=== PATIENT | male | born 1980 | race Caucasian/White ===

== ENCOUNTER 2019-04-01 02:47 | Emergency (ER) | payer OTHER ==
[2019-04-01] MEDS ORDERED: Bacitracin Oint 1 GM U/D Packet TOP ONE (02:54)
[2019-04-01] MEDS ORDERED: Ketorolac 60 MG/2 ML SDV IM ONE (02:54)
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
== END 2019-04-01 03:30 | disposition home or self-care (01) ==
LOC: MW.ED 02:47
DX: T24.501A Corrosion of first degree of unspecified site of right lower limb, except ankle and foot, initial encounter (principal); T24.402A Corrosion of unspecified degree of unspecified site of left lower limb, except ankle and foot, initial encounter
CPT/HCPCS: 96372; 99283; J1885

== ENCOUNTER 2020-09-07 10:35 | Emergency (ER) | payer MEDICAID ==
[2020-09-07] MEDS ORDERED: Bacitracin Oint 1 GM U/D Packet TOP ONE (10:40)
--- NOTE | 2020-09-07 11:04 | PCM.SN.2 ---
- Free Text/Narrative Note: September 07, 2020 at 11:03 AM 12 lead EKG interpretation Obtained: September 07, 2020 at 10:54 AM Rhythm: Sinus Rate: 94 [place]: Long QT interval 505 ms Intervals: Left bundle branch block ST/T Segments: No acute ischemic changes Interpretation: Sinus rhythm with left bundle branch block and prolonged QT interval. I discussed this with Ms. Katia NP, who will evaluate for electrolyte abnormalities and other causes of prolonged QT syndrome
--- NOTE | 2020-09-07 11:19 | EDM.PDOC ---
ED HPI GENERAL MEDICAL PROBLEM - General Chief Complaint: Head Injury Stated Complaint: HEAD INJURY Time Seen by Provider: 09/07/20 10:35 Source of Information: Reports: Patient History Limitations: Reports: No Limitations - History of Present Illness INITIAL COMMENTS - FREE TEXT/NARRATIVE: HISTORY AND PHYSICAL: History of present illness: Patient is a 39-year-old male who presents to the emergency room with complaints of headache and visual changes post head injury. [place]6 PM when he felt dizzy, fell forward and hit his head on the machine and "passed out". His reports he had seizure-like activity for 30 to 45 seconds. He states he woke up to EMS assessing him. He denies any alcohol or drug abuse. At that time he declined transport to be evaluated in the emergency room. His boss took him home and since, he has had a headache and states that he feels like he is unable to focus his vision. He does have an abr asion to his mid forehead. Reports "my made me come in". Denies any other extremity involvement. Patient denies any fever, chills, neck pain/stiffness. Denies any chest pain, back pain, shortness of breath or cough. Denies any abdominal pain, nausea, vomiting, diarrhea, constipation or dysuria. Has not noted any blood in urine or stool. Patient has been eating and drinking appropriately. Tdap is up-to-date. Review of systems: As per history of present illness and below otherwise all systems reviewed and negative. Past medical history: As per history of present illness and as reviewed below otherwise noncontributory. Surgical history: As per history of present illness and as reviewed below otherwise noncontributory. Social history: See social history for further information Family history: As per history of present illness and as reviewed below otherwise noncontributory. Physical exam: General: Well developed and well nourished 39 year male. Alert and orientated x 3. Nontoxic in appearance and in no acute distress. Vital signs are stable and have been reviewed by me. Nursing notes were reviewed. HEENT: Abrasion to midforehead and across the bridge of nose, nontender, normocephalic, pupils equal and reactive bilaterally 3mm, negative for conjunctival pallor or scleral icterus, mucous membranes moist, mild redness to base of right TM with good light reflex, left TM normal, throat clear, teeth intact, neck supple, nontender, trachea midline. No drooling or trismus noted. No meningeal signs. No hot potato voice noted. Lungs: Clear to auscultation, breath sounds equal bilaterally, chest nontender. Normal work of breathing, no accessory muscles used. Heart: S1S2, regular rate and rhythm without overt murmur Abdomen: Soft, nondistended, nontender. Negative for masses or hepatosplenomegaly. Negative for costovertebral tenderness. Pelvis: Stable nontender. C-spine/Back: No pinpoint vertebral tenderness upon palpation. No crepitus, step-offs or obvious deformities. Patient is ambulatory into the emergency room without difficulty or deficit. Able to rock back on heels and walk on toes. Denies any urinary or fecal incontinence. Denies any numbness, tingling or saddle paresthesia. No concerns of serious infection, fracture or cord compression, or cauda equina syndrome. Deep tendon reflexes brisk bilaterally. Skin: Abrasion across bridge of nose and midforehead. Otherwise skin is otherwise intact, warm, dry. No lesions or rashes noted. Hematologic: No petechiae or purpra. Mucosa appropriate color and normal nail bed color and refill. Extremities: Moves all extremities per self without difficulty or deficits, negative for cords or calf pain. Neurovascular unremarkable. Neuro: Awake, alert, oriented. Cranial nerves II through XII unremarkable. Cer ebellum unremarkable. Motor and sensory unremarkable throughout. Exam nonfocal. Psychiatric: Mood and affect are appropriate. Normal thought process. Answering questions appropriately. Notes: Last known well time was around 1800 on 09/05/20 (Monday evening). He currently has no physical deficits. He is alert, oriented and speaking appropriately. States he has feel slightly confused, "foggy" - reports he's seemed drowsy. GCS 15, NIH 0. PLEASE NOTE THAT THE REPORTS THIS OCCURRED 09/05/2020, when patient thought this occurred yesterday 09/06/2020 CT of the head shows an abnormal 5 cm region of hypoattenuation involving the right medial occipital lobe and posterior medial right temporal lobe concerning for a subacute right FINISH ROLLS OPERATOR territory infarct. Focal hypoattenuation in the central medulla is also noted, potentially artifact however additional focus of ischemia is not excluded. The radiologist did call and speak with me, recommends an MRI.We are able to get a STAT MRI at this time, patient remains stable at this time. MRI of the brain shows acute infarcts in the right FINISH ROLLS OPERATOR territory involving the right occipital lobe, right posterior medial temporal lobe, right splenium of the corpus callosum and posterior aspect right parahippocampal gyrus. NO intracranial hemorrhage. CT angio head and neck shows an occlusion of the right posterior cerebral artery distal to the P2 segment. Apparent occlusion of the origin and proximal cervical segment of the left vertebral artery with reconstitution in the proximal to mid cervical segment. Normal left FINISH ROLLS OPERATOR, basilar artery and vertebral arteries. Dominant left VA. No significant abnormality on the CTA of the neck Myself and Dr Guzmán have spoken with the patient/caregiver and discussed today's findings, in addition to providing specific details for plan of care. Will arrange for patient to be transferred for neurology. Due to the patient's seizure-like activity I will hang a gram of Keppra. [id number]: [facility] at full capacity, unable to accept this patient 1325: [facility] at full capacity 1330: [facility] at full capacity 1335: On the phone with [facility], checking availability with Neuro. Initially spoke with Dr. Yo, neurologist, about this patient and he believes that they are able to accept. Would like the hospitalist involved in this case. One-call will return phone call when they are able to reach the appropriate provider. 1350: Spoke with Dr Killian, hospitalist at [facility] and she is agreeable to excepting this patient for further care and management. Our flight crew is not available for approximately 2 hours, will have [facility] flight crew come and get this patient for transport. Their transfer time is approximately an hour and 40 minutes. Patient's blood pressure has been continued to be monitored while on the nicardipine drip. No change in patient status. See critical care time/note: Diagnostics: CBC, CMP, Troponin, TSH, Magnesium, EKG, CXR, MRI brain Therapeutics: SL x 2, Nicardipine drip (titrate), Keppra 1 gm Impression: Acute Stroke Cerebral artery occlusion Questionable occlusion of vertebral artery Hypertension Emergency Seizure like activity Plan: Transfer to [facility] Definitive disposition and diagnosis as appropriate pending reevaluation and review of above. Head Pain Score (Numeric/FACES): 4 - Related Data Allergies Allergy/AdvReac Type Severity Reaction Status Date / Time No Known Allergies Allergy Verified 09/07/20 10:44 Home Meds: Home Meds . [No Known Home Meds] 04/01/19 [History] Past Medical History Cardiovascular History: Reports: Hypertension Endocrine/Metabolic History: Reports: Diabetes, Type II, Obesity/BMI 30+ - Infectious Disease History Infectious Disease History: Reports: None - Past Surgical History GI Surgical History: Reports: Bariatric Procedure Social & Family History - Family History Family Medical History: Noncontributory - Tobacco Use Tobacco Use Status *Q: Never Tobacco User - Recreational Drug Use Recreational Drug Use: No ED ROS GENERAL - Review of Systems Review Of Systems: Comprehensive ROS is negative, except as noted in HPI. ED EXAM, HEAD INJURY - Physical Exam Exam: See Below (See dictation) Course - Vital Signs Last Recorded V/S: Last Vital Signs Temp 96.9 F 09/07/20 10:44 Pulse 81 09/07/20 14:47 Resp 18 09/07/20 14:47 BP 161/85 H 09/07/20 14:47 Pulse Ox 94 L 09/07/20 14:47 - Orders/Labs/Meds Orders: Active Orders 24 hr Category Date Time Status Assess Neurological Status [RC] ASDIRECTED Care 09/07/20 11:49 Active Cardiac Monitoring [RC] . DIRECTED Care 09/07/20 11:49 Active EKG Documentation Completion [RC] STAT Care 09/07/20 10:40 Active Initiate Acute Stroke Protocol [RC] STAT Care 09/07/20 11:49 Active NIH Stroke Scale [RC] ASDIRECTED Care 09/07/20 11:48 Active Nursing Bedside Swallow Screen [RC] ASDIRECTED Care 09/07/20 11:49 Active UA RFX JERED AND CULT IF INDIC [URIN] Stat Lab 09/07/20 10:40 Ordered Sodium Chloride 0.9% [Saline Flush] Med 09/07/20 11:48 Active 10 ml FLUSH ASDIRECTED PRN Sodium Chloride 0.9% [Saline Flush] Med 09/07/20 11:48 Active 2.5 ml FLUSH ASDIRECTED PRN niCARdipine/Normal Saline [Cardene 40 MG in NS 200 ML] Med 09/07/20 12:00 Active 40 mg in 200 ml IV TITRATE Saline Lock Insert [OM.PC] Stat Oth 09/07/20 11:48 Ordered Medication Orders Nicardipine HCl (Cardene 40 Mg In Ns 200 Ml) 40 mg in 200 mls @ 25 mls/hr IV TITRATE RUPA; Protocol Last Titration: 09/07/20 14:54 Dose: 0 mg/hr, 0 mls/hr Documented by: Titration: 09/07/20 14:31 Dose: 3 mg/hr, 15 mls/hr Documented by: Admin: 09/07/20 14:02 Dose: 5 mg/hr, 25 mls/hr Documented by: ARMANDO Sodium Chloride (Saline Flush) 10 ml FLUSH ASDIRECTED PRN PRN Reason: Keep Vein Open Sodium Chloride (Saline Flush) 2.5 ml FLUSH ASDIRECTED PRN PRN Reason: Keep Vein Open Labs: Laboratory Tests 09/07/20 09/07/20 09/07/20 Range/Units 10:53 10:53 10:53 WBC 7.72 (4.0-11.0) K/uL RBC 5.05 (4.50-5.90) M/uL Hgb 14.6 (13.0-17.0) g/dL Hct 44.5 (38.0-50.0) % MCV 88.1 (80.0-98.0) fL MCH 28.9 (27.0-32.0) pg MCHC 32.8 (31.0-37.0) g/dL RDW Std Deviation 45.0 (28.0-62.0) fl RDW Coeff of Carroll 14 (11.0-15.0) % Plt Count 226 (150-400) K/uL MPV 11.10 (7.40-12.00) fL Neut % (Auto) 67.0 (48.0-80.0) % Lymph % (Auto) 24.0 (16.0-40.0) % Placer % (Auto) 4.9 (0.0-15.0) % Eos % (Auto) 3.6 (0.0-7.0) % Baso % (Auto) 0.5 (0.0-1.5) % Neut # (Auto) 5.2 (1.4-5.7) K/uL Lymph # (Auto) 1.9 (0.6-2.4) K/uL Placer # (Auto) 0.4 (0.0-0.8) K/uL Eos # (Auto) 0.3 (0.0-0.7) K/uL Baso # (Auto) 0.0 (0.0-0.1) K/uL Nucleated RBC % 0.0 /100WBC Nucleated RBCs # 0 K/uL INR APTT (18.6-31.3) SEC Sodium 138 (136-148) mmol/L Potassium 4.0 (3.5-5.1) mmol/L Chloride 103 (98-107) mmol/L Carbon Dioxide 25.9 (21.0-32.0) mmol/L BUN 20 H (7.0-18.0) mg/dL Creatinine 1.3 (0.8-1.3) mg/dL Est Cr Clr Drug Dosing 79.64 mL/min Estimated GFR (MDRD) > 60.0 ml/min Glucose 217 H (74-106) mg/dL Calcium 9.0 (8.5-10.1) mg/dL Magnesium 2.0 (1.8-2.4) mg/dL Total Bilirubin 1.0 (0.2-1.0) mg/dL AST 20 (15-37) IU/L ALT 28 (14-63) IU/L Alkaline Phosphatase 145 H (46-116) U/L Troponin I < 0.050 (0.000-0.056) ng/mL Total Protein 7.0 (6.4-8.2) g/dL Albumin 3.1 L (3.4-5.0) g/dL Globulin 3.9 (2.6-4.0) g/dL Albumin/Globulin Ratio 0.8 L (0.9-1.6) TSH 3rd Generation 1.78 (0.36-3.74) uIU/mL 09/07/20 Range/Units 10:53 WBC (4.0-11.0) K/uL RBC (4.50-5.90) M/uL Hgb (13.0-17.0) g/dL Hct (38.0-50.0) % MCV (80.0-98.0) fL MCH (27.0-32.0) pg MCHC (31.0-37.0) g/dL RDW Std Deviation (28.0-62.0) fl RDW Coeff of Carroll (11.0-15.0) % Plt Count (150-400) K/uL MPV (7.40-12.00) fL Neut % (Auto) (48.0-80.0) % Lymph % (Auto) (16.0-40.0) % Placer % (Auto) (0.0-15.0) % Eos % (Auto) (0.0-7.0) % Baso % (Auto) (0.0-1.5) % Neut # (Auto) (1.4-5.7) K/uL Lymph # (Auto) (0.6-2.4) K/uL Placer # (Auto) (0.0-0.8) K/uL Eos # (Auto) (0.0-0.7) K/uL Baso # (Auto) (0.0-0.1) K/uL Nucleated RBC % /100WBC Nucleated RBCs # K/uL INR 1.08 APTT 24.5 (18.6-31.3) SEC Sodium (136-148) mmol/L Potassium (3.5-5.1) mmol/L Chloride (98-107) mmol/L Carbon Dioxide (21.0-32.0) mmol/L BUN (7.0-18.0) mg/dL Creatinine (0.8-1.3) mg/dL Est Cr Clr Drug Dosing mL/min Estimated GFR (MDRD) ml/min Glucose (74-106) mg/dL Calcium (8.5-10.1) mg/dL Magnesium (1.8-2.4) mg/dL Total Bilirubin (0.2-1.0) mg/dL AST (15-37) IU/L ALT (14-63) IU/L Alkaline Phosphatase (46-116) U/L Troponin I (0.000-0.056) ng/mL Total Protein (6.4-8.2) g/dL Albumin (3.4-5.0) g/dL Globulin (2.6-4.0) g/dL Albumin/Globulin Ratio (0.9-1.6) TSH 3rd Generation (0.36-3.74) uIU/mL Meds: Medications Generic Name Dose Route Start Last Admin Trade Name Freq PRN Reason Stop Dose Admin Nicardipine HCl 40 mg in 200 mls @ 25 mls/hr 09/07/20 12:00 09/07/20 14:54 Cardene 40 Mg In Ns 200 Ml IV 0 mg/hr TITRATE RUPA 0 mls/hr Titration Protocol 5 MG/HR Sodium Chloride 10 ml 09/07/20 11:48 Saline Flush FLUSH ASDIRECTED PRN Keep Vein Open Sodium Chloride 2.5 ml 09/07/20 11:48 Saline Flush FLUSH ASDIRECTED PRN Keep Vein Open Discontinued Medications Generic Name Dose Route Start Last Admin Trade Name Freq PRN Reason Stop Dose Admin Bacitracin 1 dose 09/07/20 10:40 09/07/20 14:11 Bacitracin Oint 1 Gm TOP 09/07/20 10:41 1 dose ONETIME ONE Administration Bacitracin Confirm 09/07/20 14:09 09/07/20 14:16 Bacitracin Oint 1 Gm Administered 09/07/20 14:10 Not Given Dose 1 dose .ROUTE .STK-MED ONE Gadobenate Dimeglumine 20 ml 09/07/20 11:51 09/07/20 11:54 Multihance IVPUSH 09/07/20 11:52 20 ml ONETIME STA Administration Levetiracetam 1,000 mg/ 110 mls @ 440 mls/hr 09/07/20 14:10 09/07/20 14:51 Dextrose/Water IV 09/07/20 14:24 440 mls/hr NOW STA Administration Lidocaine HCl Confirm 09/07/20 13:28 09/07/20 14:06 Xylocaine-Mpf 1% Administered 09/07/20 13:29 Not Given Dose 10 ml .ROUTE .STK-MED ONE Lidocaine HCl 5 ml 09/07/20 13:48 09/07/20 14:02 Xylocaine-Mpf 1% INJECT 09/07/20 13:49 5 ml ONETIME ONE Administration Departure - Departure Time of Disposition: 15:08 Disposition: DC/Tfer to Acute Hospital 02 Clinical Impression: Acute ischemic stroke, Seizure-like activity, Hypertensive emergency - Discharge Information Referrals: PCP,None [Primary Care Provider] - Forms: ED Department Discharge Critical Care Note - Critical Care Note Comments: Critical care time is exclusive of billable procedures and the time to perform these procedures. Critical care time was used to prevent vital system organ failure and deterioration. Critical care time includes bedside management and high-complexity decision making requiring my highest level of mental preparedness and attention. This includes reviewing the patient's chart and prior medical records, ordering and reviewing interpreting laboratory studies and imaging results, interpretation of vital signs and EKG, pulse oximetry, and discussion with the admitting team along with EMS and nursing staff. Patient required frequent morning of vitals and adjustment of intravenous nicardipine drip and intravenous antiepileptic for 78 minutes. Sepsis Event Note (ED) - Evaluation Sepsis Screening Result: No Definite Risk - Focused Exam Vital Signs: Vital Signs Temp Pulse Resp BP Pulse Ox 09/07/20 14:47 81 18 161/85 H 94 L 09/07/20 14:32 85 18 166/86 H 94 L 09/07/20 14:17 88 183/98 H 93 L 09/07/20 13:02 180/111 H 09/07/20 11:50 216/129 H 09/07/20 11:34 203/129 H 09/07/20 10:44 96.9 F 98 18 210/147 H 98 - My Orders Last 24 Hours: My Active Orders 09/07/20 10:40 EKG Documentation Completion [RC] STAT UA RFX JERED AND CULT IF INDIC [URIN] Stat 09/07/20 11:48 NIH Stroke Scale [RC] ASDIRECTED Sodium Chloride 0.9% [Saline Flush] 10 ml FLUSH ASDIRECTED PRN Sodium Chloride 0.9% [Saline Flush] 2.5 ml FLUSH ASDIRECTED PRN Saline Lock Insert [OM.PC] Stat 09/07/20 11:49 Assess Neurological Status [RC] ASDIRECTED Cardiac Monitoring [RC] . DIRECTED Initiate Acute Stroke Protocol [RC] STAT Nursing Bedside Swallow Screen [RC] ASDIRECTED 09/07/20 12:00 niCARdipine/Normal Saline [Cardene 40 MG in NS 200 ML] 40 mg in 200 ml IV TITRATE - Assessment/Plan Last 24 Hours: My Active Orders 09/07/20 10:40 EKG Documentation Completion [RC] STAT UA RFX JERED AND CULT IF INDIC [URIN] Stat 09/07/20 11:48 NIH Stroke Scale [RC] ASDIRECTED Sodium Chloride 0.9% [Saline Flush] 10 ml FLUSH ASDIRECTED PRN Sodium Chloride 0.9% [Saline Flush] 2.5 ml FLUSH ASDIRECTED PRN Saline Lock Insert [OM.PC] Stat 09/07/20 11:49 Assess Neurological Status [RC] ASDIRECTED Cardiac Monitoring [RC] . DIRECTED Initiate Acute Stroke Protocol [RC] STAT Nursing Bedside Swallow Screen [RC] ASDIRECTED 09/07/20 12:00 niCARdipine/Normal Saline [Cardene 40 MG in NS 200 ML] 40 mg in 200 ml IV TITRATE
[2020-09-07 11:35] LABS: BLOOD UREA NITROGEN,BUN 20 mg/dL (7.0-18.0); CARBON DIOXIDE,CO2 25.9 mmol/L (21.0-32.0); CHLORIDE,CL 103 mmol/L (98-107); GLUCOSE RANDOM 217 mg/dL (74-106); SODIUM,NA 138 mmol/L (136-148)
--- NOTE | 2020-09-07 11:45 | CT ---
Indication: Dizziness. Head trauma. Vision changes. Technique: CT of the head without contrast. Coronal and sagittal reformats. Bone and soft tissue windows. Comparison: No prior studies available for comparison at this institution. Findings: There is a 5 cm AP region of abnormal hypoattenuation in the medial right occipital lobe and posteromedial right temporal lobe concerning for subacute infarct. Focal hypoattenuation in the central medulla is also noted, potentially artifact however additional focus of ischemia is not excluded. Confirmation with MRI is recommended. No evidence of acute intracranial hemorrhage. No midline shift. No hydrocephalus. No suspicious extra-axial collection. Incidental small lipomas along the anterior falx. The calvarium is intact. The mastoid air cells, paranasal sinuses and orbits are unremarkable. Findings discussed with Dr. Montalvo at 11:40 a.m. Impression: 1. Abnormal 5 cm region of hypoattenuation involving the right medial occipital lobe and posteromedial right temporal lobe concerning for subacute right WOOD CALKER territory infarct. 2. Focal hypoattenuation in the central medulla is also noted, potentially artifact however additional focus of ischemia is not excluded. Confirmation with MRI is recommended. Please note that all CT scans at this facility use dose modulation, iterative reconstruction, and/or weight-based dosing when appropriate to reduce radiation dose to as low as reasonably achievable. Dictated by Jack Huizar MD @ Sep 07 2020 11:30AM Signed by Dr. Jack Huizar @ Sep 07 2020 11:43AM
[2020-09-07] MEDS ORDERED: Sodium Chloride 0.9% 2.5 ML Syringe FLUSH PRN (11:48)
[2020-09-07] MEDS ORDERED: Sodium Chloride 0.9% 10 ML Syringe FLUSH PRN (11:48)
--- NOTE | 2020-09-07 11:49 | PCM.SN.2 ---
- Free Text/Narrative Note: September 07, 2020 at 11:48 AM Repeat EKG secondary to wavy baseline and difficulty with interpretation on previous EKG 12 lead EKG interpretation Obtained: EKG #2, September 07, 2020 11:42 AM Rhythm: Sinus Rate: 88 [place]: Normal Intervals: Prolonged QT interval with a QTC of [address]/T Segments: No acute ischemic changes Interpretation: Sinus rhythm with left bundle branch block, prolonged QT interval.
[2020-09-07] MEDS ORDERED: Gadobenate Dimeglumine 529 MG/ML 20 ML SDV IVPUSH STA (11:51)
[2020-09-07] MEDS ORDERED: niCARdipine/Normal Saline 40 MG/200 ML BAG IV SCH (12:00)
--- NOTE | 2020-09-07 12:58 | MR ---
Indication: Headache, dizziness, and vision changes. Abnormal CT head Technique: Noncontrast sagittal and axial T1, axial FLAIR, T2 turbo spine echo, SWI, and diffusion weighted images. Supplemental post contrast T1 weighted axial and coronal sequences are provided after administration of 20 mL gadolinium-based IV contrast. Comparison: CT 09/07/2020 Findings: There is a moderate region of diffusion restriction and T2 prolongation involving the medial right occipital lobe, posterior medial right temporal lobe with smaller foci in the right splenium of the corpus callosum and posterior aspect of the right parahippocampal gyrus consistent with right CERTIFIED FRAUD EXAMINER territory infarcts. No hydrocephalus. No acute intracranial hemorrhage. No suspicious extra-axial collection no abnormal postcontrast enhancement. Expected intracranial vascular flow voids and enhancement are observed. The calvarium is intact. Findings were called to Dr. Montalvo at 12:54 p.m. Impression: 1. Acute infarcts in the right CERTIFIED FRAUD EXAMINER territory involving the right occipital lobe, right posterior medial temporal lobe, right splenium of the corpus callosum and posterior aspect right parahippocampal gyrus. 2. No intracranial hemorrhage. Dictated by Jack Huizar MD @ Sep 07 2020 12:50PM Signed by Dr. Jack Huizar @ Sep 07 2020 12:57PM
--- NOTE | 2020-09-07 13:38 | CT ---
DATE: 09/07/2020. CLINICAL HISTORY: Patient with acute neurological deficit. TECHNIQUE: Standard helical CT image acquisition through the head and neck was performed after intravenous contrast bolus enhancement. Multiplanar reconstructed images were performed and interpreted. COMPARISON: Correlation with head CT and brain MRI dated 09/07/2020. FINDINGS: The origins of the great vessels from the aortic arch are patent. The origin of the right vertebral artery is patent. The origin of the left vertebral artery as well as its V1 and proximal V2 segments are difficult to assess due to patient body habitus and timing of contrast bolus; however, there is asymmetric poor opacification suggestive of occlusion. The more distal V2 segment of the dominant left vertebral artery is opacified. The common carotid arteries are patent. Atherosclerosis of the right greater than left carotid bifurcations extending into the carotid bulbs results in mild luminal stenosis of the proximal right internal carotid artery (less than 50 percent stenosis by NASCET criteria) and no significant luminal stenosis of the proximal left internal carotid artery. The rest of the cervical segments of the internal carotid arteries are patent up to their intracranial segments, noting tortuosity and subpetrosal loops bilaterally. The intracranial segments of the internal carotid arteries are patent. The left vertebral artery is dominant. The mid to distal cervical segments of the vertebral arteries are patent. The intracranial segments of the vertebral arteries are patent, with the hypoplastic right vertebral artery demonstrating a markedly diminutive caliber distal to the origin of PICA. There is complete occlusion of the proximal to mid P2 segment of the right posterior cerebral artery. Evolving infarction is seen in the inferior and medial right temporal lobe as well as the occipital lobe. The basilar trunk as well as the left posterior cerebral artery are widely patent. The middle cerebral arteries are normal without aneurysm or proximal occlusion identified. The anterior cerebral arteries are normal without aneurysm or proximal occlusion identified. Incidental note is made of markedly hypoplastic A1 segment of the right anterior cerebral artery. The anterior communicating artery is well visualized and appears normal. There is normal opacification of major intracranial venous structures. The visualized lung apices are unremarkable The thyroid gland is unremarkable. The soft tissues of the neck are unremarkable. There are degenerative changes in the cervical spine. IMPRESSION: 1. Complete occlusion of the proximal to mid P2 segment of the right posterior cerebral artery with evolving infarction, as detailed above. 2. Apparent occlusion of the origin and proximal cervical segment of the left vertebral artery with reconstitution in the proximal to mid cervical segment. Please note, however, that assessment is significantly degraded secondary to patient body habitus and timing of the contrast bolus. 3. Mild atherosclerotic stenosis (less than 50 percent by NASCET criteria) of the proximal right internal carotid artery. Please note that all CT scans at this facility use dose modulation, iterative reconstruction, and/or weight-based dosing when appropriate to reduce radiation dose to as low as reasonably achievable. Dictated by Evelio Michael MD @ Sep 07 2020 1:41PM Signed by Dr. Evelio Michael @ Sep 07 2020 2:00PM
--- NOTE | 2020-09-07 13:52 | PCM.SN.2 ---
- Free Text/Narrative Note: Attending physician note I have seen and evaluated the patient with the advanced practice provider. Chief Complaint: Syncope with seizure now with confusion and difficulty with vision Brief HPI: 39-year-old male had a sudden onset of syncope followed by seizure and then continued difficulty with cognition, speech, using his left upper extremity, and visual acuity. Reports emergency department for these and had a CT with concerning findings for likely stroke. Patient has an MRI that shows acute stroke and CT angiogram shows occlusion of the right posterior cerebral artery distal to the P2 segment. CTA neck is read as normal. ROS: Reviewed and agree Focused Exam: VITAL SIGNS: Reviewed. GENERAL: conversant, GCS 13, with eye opening to voice and mild confusion HEAD: No visible signs of trauma EYES: Pupils equal, EOM grossly intact EARS: Hearing grossly intact. MOUTH: No visible lesions NECK: Appears supple CHEST: Breathing comfortably, clear lung sounds CARDIAC: Regular rhythm ABDOMEN: Soft, nontender, benign exam NEUROLOGIC EXAM: Eye-opening is to voice, mild confusion, no slurred speech, equal facial symmetry, cranial nerves II through XII are intact. Patient has difficulty with focus of his eyes. Some difficulty using his hands. says speech is slightly different but not slurred. SKIN: No visible rashes EXTREMITIES: No deformities noted VASCULAR: Appears well perfused Please see my previously dictated EKG notes PROCEDURE NOTE: Arterial Line Placement Ultrasound Guided: Yes INDICATION: Arterial blood pressure monitoring for resuscitation TECHNIQUE: Maximum sterile barrier technique. Seldinger technique. LOCATION: Right radial COMPLICATIONS: none ANAESTHESIA: local 1% lidocaine WAVEFORM: excellent, correlates PROCEDURE: Ultrasound guidance of needle placement Indication: Guidance of needle for procedure Performed and interpreted by myself Findings: 1. Targeted structure identified 2. Distance from the skin noted 3. Surrounding vascular and nerve structures noted Interpretation: Ultrasound guidance of needle to increase safety and accuracy of procedure. Signed by Obi Guzmán M.D. Critical Care Note: The patient presented in critical status due to acute stroke with hypertensive emergency requiring intravenous vasoactive medications for control blood pressure The patient required rapid exam, decision making, and frequent re-evaluations during their time in the Emergency Department. Total Critical Care time exclusive of all other billable procedure time provided by myself 107 minutes NIH Stroke Scale/Score (NIHSS) RESULT SUMMARY: 4 points NIH Stroke Scale INPUTS: 1A: Level of consciousness > 1 = Arouses to minor stimulation 1B: Ask month and age > 0 = Both questions right 1C: 'Blink eyes' & 'squeeze hands' > 0 = Performs both tasks 2: Horizontal extraocular movements > 0 = Normal 3: Visual chaudhari > 0 = No visual loss 4: Facial palsy > 0 = Normal symmetry 5A: Left arm motor drift > 1 = Drift, but doesn't hit bed 5B: Right arm motor drift > 0 = No drift for 10 seconds 6A: Left leg motor drift > 0 = No drift for 5 seconds 6B: Right leg motor drift > 0 = No drift for 5 seconds 7: Limb Ataxia > 1 = Ataxia in 1 Limb 8: Sensation > 0 = Normal; no sensory loss 9: Language/aphasia > 1 = Mild-moderate aphasia: some obvious changes, without significant limitation 10: Dysarthria > 0 = Normal 11: Extinction/inattention > 0 = No abnormality The patient has altered mental status and I considered the following entities in the differential diagnosis: hypoglycemia, electrolyte imbalance, head trauma, intracranial bleed or mass, meningitis sepsis, transient ischemic attack or stroke, toxidrome/intoxication/medication effect, seizure or postictal state, hepatic encephalopathy, acid/base disturbance, hypercapnia. No evidence of metabolic abnormality. No hypoglycemia. Electrolytes are normal. No meningitis or sepsis found. No toxidrome. Does not appear to be postictal. Assessment & Plan: 1. Acute stroke (NIH 4) 2. Acute hypertensive emergency 3. Stroke onset with seizures 4. 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 BMI greater than 35 7. History of lung nodules with no follow-up for greater than 5 years 8. Uncontrolled hypertension 9. Tobacco dependence I spoke to the stroke neurologist at [place], Dr. Alford, he recommends blood pressure goal of 180/90. Strongly recommends no hypotension, also recommends giving Keppra to prevent seizures with the 1000 mg now and then followed by 500 mg twice daily. He also recommends transferring the patient to a large vessel occlusion Center in [place] or [place] where the patient, perfusion scan. He feels the patient is at risk for another stroke.
[2020-09-07] MEDS ORDERED: Bacitracin Oint 1 GM U/D Packet ONE (14:09)
[2020-09-07] MEDS ORDERED: Iopamidol 755 MG/ML 500 ML Multipack Bottle IVPUSH STA (16:22)
--- NOTE | 2020-09-07 16:45 | PCM.SN.2 ---
- Free Text/Narrative Note: Justice the transport team arrived the patient needed to urinate and he refused to use the bedside urinal. We tried to facilitate his needs and let him go to the restroom. We assisted him in going to the restroom and he refused to provide a urine sample. He used a tirade of profanity saying he is leaving the hospital. I checked his mental status and he is awake, alert, oriented to person place time and event. He understands his condition and understands that he had a stroke, a seizure, and could have permanent neurologic impairment and other life-threatening type impairment if he leaves the hospital. He is refusing to stay for treatment and has pulled out his IV. He tried to pulled out his arterial line but it is sutured in and he has asked us to remove the suture so he can leave. His family is currently not here because the patient was being transferred and they went home. I will let the family know of his condition. I have asked him to stay multiple times and spent more than 30 minutes at the bedside trying to work through this. My diagnostic impression: 1. Acute stroke syndrome as listed before Leaving AGAINST MEDICAL ADVICE, of sound mind, signed AMA and understands this is releasing the hospital, emergency physician, other providers, nursing staff and all associated care providers of medical liability.
== END 2020-09-07 17:11 | disposition left against medical advice (07) ==
LOC: MW.ED 10:35
DX: I16.1 Hypertensive emergency (principal); I63.9 Cerebral infarction, unspecified; I10 Essential (primary) hypertension; E11.9 Type 2 diabetes mellitus without complications; E66.9 Obesity, unspecified
CPT/HCPCS: 36415; 36600; 70450; 70496; 70498; 70553; 80053; 82803; 83735; 84443; 84484; 85025; 85610; 85730; 93005; 96365; 96366; 96375; 99291; 99292; A9577; J1953; J2001; J7060; Q9967; 93010

== ENCOUNTER 2020-09-09 09:24 | Inpatient (IN) | payer MEDICAID ==
[2020-09-09] MEDS ORDERED: Lactated Ringers 1,000 ML IV ONE (09:38)
[2020-09-09] MEDS ORDERED: Sodium Chloride 0.9% 2.5 ML Syringe FLUSH PRN (09:38)
[2020-09-09] MEDS ORDERED: Sodium Chloride 0.9% 10 ML Syringe FLUSH PRN (09:38)
--- NOTE | 2020-09-09 09:38 | EDM.PDOC ---
ED HPI GENERAL MEDICAL PROBLEM - General Chief Complaint: Headache Stated Complaint: STROKE Time Seen by Provider: 09/09/20 09:34 Source of Information: Reports: Patient, EMS History Limitations: Reports: No Limitations - History of Present Illness INITIAL COMMENTS - FREE TEXT/NARRATIVE: 39-year-old male recently signed out AGAINST MEDICAL ADVICE on 09/07 for hypertensive emergency and ischemic stroke, cerebral artery occlusion, and seizure-like activity returns by EMS for headache and blurry vision. He woke up at 0300 this morning complaining of worsening blurry vision and frontal headache that he had on 09/07, at that time he was getting airlifted to [place] for hypertensive emergency but signed out AGAINST MEDICAL ADVICE because he got scared. He was prescribed Keppra, lisinoprl/HCTZ, and aspirin, but he did not fill the medications. Patient denies fever, chills, headache, chest pain, shortness of breath, abdominal pain, focal numbness or weakness. MS noted blood glucose = 220, blood pressure = 220/120. EMS noted negative FAST. On 09/07 he underwent CTA head/neck, which demonstrated a complete occlusion to the proximal to mid P2 segment of the right posterior cerebral artery with evolving infarction, occlusion at the origin and proximal cervical segment of the left vertebral artery with reconstitution in the proximal to mid cervical segment. MRI brain demonstrated acute infarct in the right [employer] territory involving the right occipital lobe, right posterior medial temporal lobe, right splenium of the corpus callosum and posterior aspect right parahippocampal gyrus. No intracranial hemorrhage. ROS: A 10-point review of systems, other than pertinent positives and negatives as stated per HPI, is otherwise negative Past medical history: No additional pertinent history Past Surgical history: No additional pertinent history Social history: No additional pertinent history Family history: No additional pertinent history PHYSICAL EXAM General: AOx4, GCS = 15, No distress HEENT: dry mucous membrane Neck: supple, no meningismus, no Kernig or Brudzinski Cardiac: S1S2 RRR Respiratory: CTAB, no crackles or rales, no wheezing Abdomen: Soft, nontender, no rebound or guarding, nondistended, no pulsatile mass. Back: nontender Musculoskeletal: NVI distally, no deformity Neuro: No focal deficits, CN 2 - 12 WNL. headache, behind eyes Pain Score (Numeric/FACES): 5 - Related Data Allergies Allergy/AdvReac Type Severity Reaction Status Date / Time No Known Allergies Allergy Verified 09/09/20 09:29 Home Meds: Home Meds Aspirin [Aspirin EC] 325 mg PO QAM #60 tablet. 09/07/20 [Rx] Lisinopril/Hydrochlorothiazide [Lisinopril-Hctz 20-25 mg Tab] 1 each PO DAILY #60 tablet 09/07/20 [Rx] levETIRAcetam [Keppra] 500 mg PO BID #60 tablet 09/07/20 [Rx] Past Medical History Cardiovascular History: Reports: Hypertension Endocrine/Metabolic History: Reports: Diabetes, Type II, Obesity/BMI 30+ - Infectious Disease History Infectious Disease History: Reports: None - Past Surgical History GI Surgical History: Reports: Bariatric Procedure Social & Family History - Family History Family Medical History: Noncontributory ED ROS GENERAL - Review of Systems Review Of Systems: Comprehensive ROS is negative, except as noted in HPI. (see dictation) ED EXAM, GENERAL - Physical Exam Exam: See Below (see dictation) #1 Interpretation EKG Date: 09/09/20 Time: 09:53 Rhythm: NSR QT: Prolonged EKG Interpretation Comments: Heart rate = 92 bpm, normal sinus rhythm, QTC 494ms, normal QRS interval, no STEMI. EKG and rhythm strip interpreted by me at 0953 Course - Vital Signs Last Recorded V/S: Last Vital Signs Temp 96.9 F 09/09/20 09:25 Pulse 90 09/09/20 10:27 Resp 20 09/09/20 10:27 BP 205/138 H 09/09/20 10:27 Pulse Ox 98 09/09/20 10:27 - Orders/Labs/Meds Orders: Active Orders 24 hr Category Date Time Status Cardiac Monitoring [RC] . DIRECTED Care 09/09/20 09:38 Active EKG Documentation Completion [RC] STAT Care 09/09/20 09:38 Active Pulse Oximetry [RC] ASDIRECTED Care 09/09/20 09:38 Active B-TYPE NATRIURETIC PEPTIDE,BNP [CHEM] Stat Lab 09/09/20 09:30 Received CORONAVIRUS COVID-19 PCR PHL Stat Lab 09/09/20 09:38 Ordered DRUG SCREEN, URINE [URCHEM] Stat Lab 09/09/20 09:38 Ordered UA W/MICROSCOPIC [URIN] Stat Lab 09/09/20 09:38 Ordered Sodium Chloride 0.9% [Saline Flush] Med 09/09/20 09:38 Active 10 ml FLUSH ASDIRECTED PRN Sodium Chloride 0.9% [Saline Flush] Med 09/09/20 09:38 Active 2.5 ml FLUSH ASDIRECTED PRN niCARdipine/Normal Saline [Cardene 40 MG in NS 200 ML] Med 09/09/20 10:45 Active 40 mg in 200 ml IV TITRATE Saline Lock Insert [OM.PC] Stat Oth 09/09/20 09:38 Ordered Medication Orders Nicardipine HCl (Cardene 40 Mg In Ns 200 Ml) 40 mg in 200 mls @ 25 mls/hr IV TITRATE RUPA; Protocol Sodium Chloride (Saline Flush) 10 ml FLUSH ASDIRECTED PRN PRN Reason: Keep Vein Open Last Admin: 09/09/20 10:30 Dose: 10 ml Documented by: LEIGH ANN Sodium Chloride (Saline Flush) 2.5 ml FLUSH ASDIRECTED PRN PRN Reason: Keep Vein Open Last Admin: 09/09/20 10:32 Dose: 2.5 ml Documented by: LEIGH ANN Labs: Laboratory Tests 09/09/20 09/09/20 Range/Units 09:30 09:30 WBC 6.58 (4.0-11.0) K/uL RBC 5.31 (4.50-5.90) M/uL Hgb 15.0 (13.0-17.0) g/dL Hct 46.3 (38.0-50.0) % MCV 87.2 (80.0-98.0) fL MCH 28.2 (27.0-32.0) pg MCHC 32.4 (31.0-37.0) g/dL RDW Std Deviation 44.1 (28.0-62.0) fl RDW Coeff of [place] 14 (11.0-15.0) % Plt Count 228 (150-400) K/uL MPV 10.90 (7.40-12.00) fL Neut % (Auto) 58.9 (48.0-80.0) % Lymph % (Auto) 28.3 (16.0-40.0) % [place] % (Auto) 7.0 (0.0-15.0) % Eos % (Auto) 5.2 (0.0-7.0) % Baso % (Auto) 0.6 (0.0-1.5) % Neut # (Auto) 3.9 (1.4-5.7) K/uL Lymph # (Auto) 1.9 (0.6-2.4) K/uL [place] # (Auto) 0.5 (0.0-0.8) K/uL Eos # (Auto) 0.3 (0.0-0.7) K/uL Baso # (Auto) 0.0 (0.0-0.1) K/uL Nucleated RBC % 0.0 /100WBC Nucleated RBCs # 0 K/uL Sodium 137 (136-148) mmol/L Potassium 3.5 (3.5-5.1) mmol/L Chloride 102 (98-107) mmol/L Carbon Dioxide 26.6 (21.0-32.0) mmol/L BUN 14 (7.0-18.0) mg/dL Creatinine 1.3 (0.8-1.3) mg/dL Est Cr Clr Drug Dosing 79.64 mL/min Estimated GFR (MDRD) > 60.0 ml/min Glucose 195 H (74-106) mg/dL Calcium 8.9 (8.5-10.1) mg/dL Phosphorus 3.7 (2.6-4.7) mg/dL Magnesium 1.7 L (1.8-2.4) mg/dL Total Bilirubin 1.0 (0.2-1.0) mg/dL AST 17 (15-37) IU/L ALT 28 (14-63) IU/L Alkaline Phosphatase 153 H (46-116) U/L Creatine Kinase 84 (26-308) U/L Troponin I < 0.050 (0.000-0.056) ng/mL Total Protein 7.5 (6.4-8.2) g/dL Albumin 3.2 L (3.4-5.0) g/dL Globulin 4.3 H (2.6-4.0) g/dL Albumin/Globulin Ratio 0.7 L (0.9-1.6) Ethyl Alcohol < 3.0 mg/dL Meds: Medications Generic Name Dose Route Start Last Admin Trade Name Freq PRN Reason Stop Dose Admin Nicardipine HCl 40 mg in 200 mls @ 25 mls/hr 09/09/20 10:45 Cardene 40 Mg In Ns 200 Ml IV TITRATE RUPA Protocol 5 MG/HR Sodium Chloride 10 ml 09/09/20 09:38 09/09/20 10:30 Saline Flush FLUSH 10 ml ASDIRECTED PRN Administration Keep Vein Open Sodium Chloride 2.5 ml 09/09/20 09:38 09/09/20 10:32 Saline Flush FLUSH 2.5 ml ASDIRECTED PRN Administration Keep Vein Open Discontinued Medications Generic Name Dose Route Start Last Admin Trade Name Freq PRN Reason Stop Dose Admin Lactated Ringer's 1,000 mls @ 999 mls/hr 09/09/20 09:38 09/09/20 10:30 Ringers, Lactated IV 09/09/20 10:38 999 mls/hr .BOLUS ONE Administration Labetalol HCl 20 mg 09/09/20 09:40 09/09/20 10:29 Normodyne IVPUSH 09/09/20 09:41 20 mg ONETIME ONE Administration Protocol - Re-Assessments/Exams Free Text/Narrative Re-Assessment/Exam: 09/09/20 10:34 After 20 mg IV labetalol, blood pressure is still high, will start patient on Cardene drip. Patient will require transfer to outside facility for the need of higher level of care not available at this facility, and the need for funeral pre need consultant services unavailable at this facility. Patient was previously accepted at [facility] 2 days ago, will attempt to call them again. Case was discussed and accepted by Dr. Yo at [facility], given his symptoms have been ongoing for 5 days now, he doesn't recommend transfer at this time, at this time for HCTZ/Chlorthalidone, recommends ECHO, outpatient compliance monitor, statin, aspirin. 09/09/20 10:53 BP = 177/112 now, case discussed with Dr. Caballero, who agrees to admit patient. The hospitalist's documentation supersedes all other documentation on this patient with regard to any conflicts or discrepancies from this point forward. Any emergency conditions have been treated to the ability of the ED prior to admission. Departure - Departure Time of Disposition: 10:36 Disposition: Admitted As Inpatient 64 Condition: Critical Clinical Impression: Hypertensive emergency, Seizure-like activity, Ischemic stroke, Cerebral artery occlusion, Noncompliance with medication regimen - Discharge Information Referrals: PCP,None [Primary Care Provider] - Forms: ED Department Discharge Critical Care Note - Critical Care Note Comments: CRITCAL CARE: The high probability of sudden, clinically significant deterioration in the patient's condition required the highest level of my preparedness to intervene urgently. The services I provided to this patient were to treat and/or prevent clinically significant deterioration. Services included the following: chart data review, reviewing nursing notes and/or old charts, documentation time, funeral pre need consultant collaboration regarding findings and treatment options, medication orders and management, direct patient care, vital sign assessments and ordering, interpreting and reviewing diagnostic studies/lab tests. Aggregate critical care time includes only time during which I was engaged in work directly related to the patient's care, as described above, whether at the bedside or elsewhere in the Emergency Department. It did not include time spent performing other reported procedures or the services of residents, students, nurses or physician assistants. Frequent interventions and/or frequent repeat evaluations were required as well as counseling and coordination of care regarding prognosis, treatments, and discussions with patient, staff and consultants. Critical Care (excluding other procedures): 126 minutes Sepsis Event Note (ED) - Evaluation Sepsis Screening Result: No Definite Risk - Focused Exam Vital Signs: Vital Signs Temp Pulse Resp BP Pulse Ox 09/09/20 10:27 90 20 205/138 H 98 09/09/20 09:25 96.9 F 96 18 229/132 H 97 - My Orders Last 24 Hours: My Active Orders 09/09/20 09:30 B-TYPE NATRIURETIC PEPTIDE,BNP [CHEM] Stat 09/09/20 09:38 Cardiac Monitoring [RC] . DIRECTED EKG Documentation Completion [RC] STAT Pulse Oximetry [RC] ASDIRECTED CORONAVIRUS COVID-19 PCR PHL Stat DRUG SCREEN, URINE [URCHEM] Stat UA W/MICROSCOPIC [URIN] Stat Sodium Chloride 0.9% [Saline Flush] 10 ml FLUSH ASDIRECTED PRN Sodium Chloride 0.9% [Saline Flush] 2.5 ml FLUSH ASDIRECTED PRN Saline Lock Insert [OM.PC] Stat 09/09/20 10:45 niCARdipine/Normal Saline [Cardene 40 MG in NS 200 ML] 40 mg in 200 ml IV TITRATE - Assessment/Plan Last 24 Hours: My Active Orders 09/09/20 09:30 B-TYPE NATRIURETIC PEPTIDE,BNP [CHEM] Stat 09/09/20 09:38 Cardiac Monitoring [RC] . DIRECTED EKG Documentation Completion [RC] STAT Pulse Oximetry [RC] ASDIRECTED CORONAVIRUS COVID-19 PCR PHL Stat DRUG SCREEN, URINE [URCHEM] Stat UA W/MICROSCOPIC [URIN] Stat Sodium Chloride 0.9% [Saline Flush] 10 ml FLUSH ASDIRECTED PRN Sodium Chloride 0.9% [Saline Flush] 2.5 ml FLUSH ASDIRECTED PRN Saline Lock Insert [OM.PC] Stat 09/09/20 10:45 niCARdipine/Normal Saline [Cardene 40 MG in NS 200 ML] 40 mg in 200 ml IV TITRATE
[2020-09-09] MEDS ORDERED: Labetalol 100 MG/20 ML MDV IVPUSH ONE (09:40)
[2020-09-09 10:14] LABS: BLOOD UREA NITROGEN,BUN 14 mg/dL (7.0-18.0); CARBON DIOXIDE,CO2 26.6 mmol/L (21.0-32.0); CHLORIDE,CL 102 mmol/L (98-107); GLUCOSE RANDOM 195 mg/dL (74-106); POTASSIUM,K 3.5 mmol/L (3.5-5.1); SODIUM,NA 137 mmol/L (136-148)
--- NOTE | 2020-09-09 10:32 | CT ---
INDICATION: Blurred vision. Hypertension. History of stroke. TECHNIQUE: CT head without contrast. COMPARISON: September 07, 2020. FINDINGS: CSF spaces: Within normal limits for age. Brain parenchyma and extra-axial spaces: The mason-white differentiation is normal. Encephalomalacia from an old infarct present in the right posterior cerebral artery distribution. No sign of mass, hemorrhage, or midline shift. No extra-axial fluid collection. Skull base and calvarium: The visualized paranasal sinuses and mastoid air cells demonstrate no acute or significant findings. The visualized orbits are grossly unremarkable. No skull fractures. IMPRESSION: No acute findings. No sign of acute CVA or hemorrhage. 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 Please note that all CT scans at this facility use dose modulation, iterative reconstruction, and/or weight-based dosing when appropriate to reduce radiation dose to as low as reasonably achievable. Dictated by Keyur De Paz MD @ Sep 09 2020 10:24AM Signed by Dr. Keyur De Paz @ Sep 09 2020 10:31AM
--- NOTE | 2020-09-09 10:37 | CR ---
INDICATION: Blurred vision. Hypertensive emergency. TECHNIQUE: Chest 1 view COMPARISON: None FINDINGS: Cardiovascular and mediastinum: Heart size and vasculature are normal in caliber and appearance. Lungs and pleural spaces: A 2 cm faint nodular opacity is in the mid left lung field. Remainder of the lungs and pleural spaces are clear. Bones and soft tissues: No significant findings. IMPRESSION: Indeterminate 2 cm faint nodular opacity in the mid left lung. This should be further evaluated with follow-up chest x-ray or CT evaluation. Remainder of the chest is unremarkable. Dictated by Keyur De Paz MD @ Sep 09 2020 10:33AM Signed by Dr. Keyur De Paz @ Sep 09 2020 10:36AM
[2020-09-09] MEDS ORDERED: niCARdipine/Normal Saline 40 MG/200 ML BAG IV SCH (10:45)
[2020-09-09] MEDS ORDERED: Lisinopril 10 MG Tab PO SCH (11:30)
[2020-09-09] MEDS ORDERED: Acetaminophen 325 MG Tab PO PRN (12:55)
[2020-09-09] MEDS ORDERED: Ondansetron 4 MG/2 ML SDV IVPUSH PRN (12:55)
[2020-09-09] MEDS ORDERED: Aspirin 325 MG Tab PO ONE (12:59)
[2020-09-09] MEDS ORDERED: Enoxaparin 40 MG/0.4 ML Syringe SUBCUT SCH (13:00)
--- NOTE | 2020-09-09 13:39 | PCM.HP.2 ---
H&P History of Present Illness - General Date of Service: 09/09/20 Admit Problem/Dx: Admission Diagnosis/Problem Admission Diagnosis/Problem Ischemic stroke Source of Information: Patient History Limitations: Reports: No Limitations - History of Present Illness Initial Comments - Free Text/Narative: This 39-year-old male with P MH of obesity gastric band surgery and tobacco use presented to the ER with continued blurred vision and headache. He was seen and evaluated on 09/07 for symptoms of dizziness, seizure like activity which started on 09/05. 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 He left AMA and returns today. He reports blurred vision has gotten worse and headache comes and goes but is also worse. He denies following up with any other provider and DID NOT take Lisinopril/HCTZ or Keppra at home that was provided when leaving AMA. He denies chest pain or SOB. No abdominal pain, no neck pain and no concerns with GI/ systems. Denies seizure like activity since leaving. He denies alcohol use or recreational drug use. He repots chewing tobacco use, 1-1 1/2 tins every other day. Denies known family history of clotting disorders, no personal history of clots. He reports he had a stress test years ago, which was negative. Have gastric banding surgery 2 years ago and has last nearly 200 lbs, did weight 580 lbs at time of surgery. In the ED labwork WNL, glucose mildly elevated. EKG SR. Head CT shows old R infarct with encephalomalacia noted. CXR negative. He was noted to have HTN urgency, BP 220/110s, he was given labetalol IV which improved BP. Neurology consulted in [place], they recommended further stroke evaluation, but no interventions available 5 days post CVA. He will be admitted inpatient with HTN urgency, recent ischemic stroke. headache, behind eyes Pain Score (Numeric/FACES): 5 - Related Data Allergies/Adverse Reactions: Allergies Allergy/AdvReac Type Severity Reaction Status Date / Time bee venom protein (honey bee) Allergy Airway Verified 09/09/20 13:45 Tightness Home Medications: Home Meds . [No Known Home Meds] 09/09/20 [History] Past Medical History Cardiovascular History: Reports: Hypertension Endocrine/Metabolic History: Reports: Diabetes, Type II, Obesity/BMI 30+ - Infectious Disease History Infectious Disease History: Reports: Chicken Pox - Past Surgical History GI Surgical History: Reports: Bariatric Procedure Social & Family History - Family History Family Medical History: Noncontributory - Tobacco Use Tobacco Use Status *Q: Current Every Day Tobacco User Tobacco Use Within Last Twelve Months: Smokeless Tobacco Years of Tobacco use: 16 Packs/Tins Daily: 1 Tobacco Use Comment: patient gave me tobacco tin to throw away with NADINE Rivera in the room Smoking Cessation Information Provided To Patient: Yes - Alcohol Use Alcohol Use History: No - Recreational Drug Use Recreational Drug Use: No - Living Situation & Occupation Living situation: Reports: with Significant Other Occupation: Employed H&P Review of Systems - Review of Systems: Review Of Systems: See Below General: Denies: Fever, Chills, Malaise, Weakness HEENT: Reports: Headaches (frontal), Visual Changes Pulmonary: Denies: Shortness of Breath Cardiovascular: Reports: No Symptoms. Denies: Chest Pain Gastrointestinal: Reports: No Symptoms. Denies: Abdominal Pain, Anorexia, Black Stool, Bloody Stool, Nausea, Vomiting Genitourinary: Reports: No Symptoms. Denies: Dysuria, Frequency Musculoskeletal: Reports: No Symptoms Skin: Reports: No Symptoms Psychiatric: Reports: No Symptoms Neurological: Reports: No Symptoms Hematologic/Lymphatic: Reports: No Symptoms Immunologic: Reports: No Symptoms Exam - Exam Exam: See Below - Vital Signs Vital Signs: Last Vital Signs Temp 96.9 F 09/09/20 09:25 Pulse 80 09/09/20 12:24 Resp 18 09/09/20 11:59 BP 185/133 H 09/09/20 12:24 Pulse Ox 97 09/09/20 11:59 Weight: 120.202 kg - Exam General: Alert, Oriented, Cooperative HEENT: Conjunctiva Clear, Mucosa Moist & [place], Posterior Pharynx Clear Lungs: Clear to Auscultation, Normal Respiratory Effort Cardiovascular: Regular Rate, Regular Rhythm GI/Abdominal Exam: Normal Bowel Sounds, Soft, Non-Tender Extremities: Normal Inspection, Normal Range of Motion, Non-Tender, No Pedal Edema Skin: Warm, Dry, Wound (forehead and bridge of nose, old healing abrasions) Neurological: Reflexes Equal Bilateral, Strength Equal Bilateral, Normal Gait, Normal Speech, Other (blurrred vision and impaired peripheral vision L >R. "hard to focus") Neuro Extensive - Mental Status: Alert, Oriented x3, Normal Mood/Affect. No: Memory Intact (Memory is not clear when events happened the last few days.) Psychiatric: Alert, Normal Affect, Normal Mood - Patient Data Lab Results Last 24 hrs: Laboratory Results - last 24 hr 09/09/20 09/09/20 09/09/20 Range/Units 09:30 09:30 09:30 WBC 6.58 (4.0-11.0) K/uL RBC 5.31 (4.50-5.90) M/uL Hgb 15.0 (13.0-17.0) g/dL Hct 46.3 (38.0-50.0) % MCV 87.2 (80.0-98.0) fL MCH 28.2 (27.0-32.0) pg MCHC 32.4 (31.0-37.0) g/dL RDW Std Deviation 44.1 (28.0-62.0) fl RDW Coeff of [place] 14 (11.0-15.0) % Plt Count 228 (150-400) K/uL MPV 10.90 (7.40-12.00) fL Neut % (Auto) 58.9 (48.0-80.0) % Lymph % (Auto) 28.3 (16.0-40.0) % [place] % (Auto) 7.0 (0.0-15.0) % Eos % (Auto) 5.2 (0.0-7.0) % Baso % (Auto) 0.6 (0.0-1.5) % Neut # (Auto) 3.9 (1.4-5.7) K/uL Lymph # (Auto) 1.9 (0.6-2.4) K/uL [place] # (Auto) 0.5 (0.0-0.8) K/uL Eos # (Auto) 0.3 (0.0-0.7) K/uL Baso # (Auto) 0.0 (0.0-0.1) K/uL Nucleated RBC % 0.0 /100WBC Nucleated RBCs # 0 K/uL Sodium 137 (136-148) mmol/L Potassium 3.5 (3.5-5.1) mmol/L Chloride 102 (98-107) mmol/L Carbon Dioxide 26.6 (21.0-32.0) mmol/L BUN 14 (7.0-18.0) mg/dL Creatinine 1.3 (0.8-1.3) mg/dL Est Cr Clr Drug Dosing 79.64 mL/min Estimated GFR (MDRD) > 60.0 ml/min Glucose 195 H (74-106) mg/dL Calcium 8.9 (8.5-10.1) mg/dL Phosphorus 3.7 (2.6-4.7) mg/dL Magnesium 1.7 L (1.8-2.4) mg/dL Total Bilirubin 1.0 (0.2-1.0) mg/dL AST 17 (15-37) IU/L ALT 28 (14-63) IU/L Alkaline Phosphatase 153 H (46-116) U/L Creatine Kinase 84 (26-308) U/L Troponin I < 0.050 (0.000-0.056) ng/mL B-Natriuretic Peptide 136 H (<100) PG/ML Total Protein 7.5 (6.4-8.2) g/dL Albumin 3.2 L (3.4-5.0) g/dL Globulin 4.3 H (2.6-4.0) g/dL Albumin/Globulin Ratio 0.7 L (0.9-1.6) Ethyl Alcohol < 3.0 mg/dL SARS-CoV-2 RNA (ADAL) (NEGATIVE) SARS CoV-2 RNA Rapid ADAL (NEGATIVE) 09/09/20 09/09/20 Range/Units 10:34 10:34 WBC (4.0-11.0) K/uL RBC (4.50-5.90) M/uL Hgb (13.0-17.0) g/dL Hct (38.0-50.0) % MCV (80.0-98.0) fL MCH (27.0-32.0) pg MCHC (31.0-37.0) g/dL RDW Std Deviation (28.0-62.0) fl RDW Coeff of [place] (11.0-15.0) % Plt Count (150-400) K/uL MPV (7.40-12.00) fL Neut % (Auto) (48.0-80.0) % Lymph % (Auto) (16.0-40.0) % [place] % (Auto) (0.0-15.0) % Eos % (Auto) (0.0-7.0) % Baso % (Auto) (0.0-1.5) % Neut # (Auto) (1.4-5.7) K/uL Lymph # (Auto) (0.6-2.4) K/uL [place] # (Auto) (0.0-0.8) K/uL Eos # (Auto) (0.0-0.7) K/uL Baso # (Auto) (0.0-0.1) K/uL Nucleated RBC % /100WBC Nucleated RBCs # K/uL Sodium (136-148) mmol/L Potassium (3.5-5.1) mmol/L Chloride (98-107) mmol/L Carbon Dioxide (21.0-32.0) mmol/L BUN (7.0-18.0) mg/dL Creatinine (0.8-1.3) mg/dL Est Cr Clr Drug Dosing mL/min Estimated GFR (MDRD) ml/min Glucose (74-106) mg/dL Calcium (8.5-10.1) mg/dL Phosphorus (2.6-4.7) mg/dL Magnesium (1.8-2.4) mg/dL Total Bilirubin (0.2-1.0) mg/dL AST (15-37) IU/L ALT (14-63) IU/L Alkaline Phosphatase (46-116) U/L Creatine Kinase (26-308) U/L Troponin I (0.000-0.056) ng/mL B-Natriuretic Peptide (<100) PG/ML Total Protein (6.4-8.2) g/dL Albumin (3.4-5.0) g/dL Globulin (2.6-4.0) g/dL Albumin/Globulin Ratio (0.9-1.6) Ethyl Alcohol mg/dL SARS-CoV-2 RNA (ADAL) NEGATIVE (NEGATIVE) SARS CoV-2 RNA Rapid ADAL NEGATIVE (NEGATIVE) Result Diagrams: 09/09/20 09:30 09/09/20 09:30 Sepsis Event Note - Evaluation Sepsis Screening Result: No Definite Risk - Focused Exam Vital Signs: Vital Signs Temp Pulse Resp BP BP Pulse Ox 09/09/20 12:24 80 185/133 H 09/09/20 12:14 77 196/132 H 09/09/20 11:59 75 18 181/122 H 97 09/09/20 11:36 193/133 H 09/09/20 11:13 77 181/132 H 09/09/20 10:59 74 17 177/122 H 95 09/09/20 10:44 72 17 186/115 H 93 L 09/09/20 10:27 90 20 205/138 H 98 09/09/20 09:25 96.9 F 96 18 229/132 H 97 - Problem List (1) Hypertensive emergency SNOMED Code(s): 283830985202442 ICD Code: I16.1 - HYPERTENSIVE EMERGENCY Status: Acute Current Visit: Yes (2) Obesity SNOMED Code(s): 934764144, 912620585 ICD Code: E66.9 - OBESITY, UNSPECIFIED Status: Chronic Current Visit: Yes (3) Hx of laparoscopic gastric banding SNOMED Code(s): 609285406 ICD Code: Z98.84 - BARIATRIC SURGERY STATUS Status: Chronic Current Visit: Yes (4) Tobacco abuse counseling SNOMED Code(s): 286263527, 707028145, 286969883 ICD Code: Z71.6 - TOBACCO ABUSE COUNSELING Status: Acute Current Visit: Yes (5) Tobacco abuse SNOMED Code(s): 185221637 ICD Code: Z72.0 - TOBACCO USE Status: Chronic Current Visit: Yes (6) Cerebral artery occlusion SNOMED Code(s): 01735946 ICD Code: I66.9 - OCCLUSION AND STENOSIS OF UNSPECIFIED CEREBRAL ARTERY Status: Chronic Current Visit: Yes (7) Ischemic stroke SNOMED Code(s): 343475543 ICD Code: I63.9 - CEREBRAL INFARCTION, UNSPECIFIED Status: Chronic Current Visit: Yes (8) Noncompliance with medication regimen SNOMED Code(s): 696010716 ICD Code: Z91.14 - PATIENT'S OTHER NONCOMPLIANCE WITH MEDICATION REGIMEN Status: Chronic Current Visit: Yes (9) Seizure-like activity SNOMED Code(s): 069475548 ICD Code: R56.9 - UNSPECIFIED CONVULSIONS Status: Chronic Current Visit: Yes (10) DM type 2 (diabetes mellitus, type 2) SNOMED Code(s): 64407535 ICD Code: E11.9 - TYPE 2 DIABETES MELLITUS WITHOUT COMPLICATIONS Status: Acute Current Visit: Yes Qualifiers: 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 DIRECTED Care 09/09/20 09:38 Active Intake and Output [RC] QSHIFT Care 09/09/20 12:56 Active Oxygen Therapy [RC] PRN Care 09/09/20 12:55 Active Telemetry Monitoring [Cardiac Monitoring] [RC] . Care 09/09/20 12:59 Active DIRECTED Up With Assistance [RC] ASDIRECTED Care 09/09/20 12:55 Active VTE/DVT Education [RC] PER UNIT ROUTINE Care 09/09/20 12:55 Active Vital Signs [RC] Q4H Care 09/09/20 12:55 Active Heart Healthy Diet [DIET] Diet 09/09/20 Lunch Active Echo Comp wo Cont [US] Urgent Exams 09/09/20 13:00 Ordered BASIC METABOLIC PANEL,BMP [CHEM] AM Lab 09/10/20 05:11 Ordered CBC WITH AUTO DIFF [HEME] AM Lab 09/10/20 05:11 Ordered DRUG SCREEN, URINE [URCHEM] Stat Lab 09/09/20 09:38 Ordered GLYCOSYLATED HEMOGLOBIN,HGBA1C [CHEM] Routine Lab 09/09/20 12:55 Ordered LIPID PANEL [CHEM] AM Lab 09/10/20 05:11 Ordered MAGNESIUM [CHEM] AM Lab 09/10/20 05:11 Ordered TSH [CHEM] Routine Lab 09/09/20 12:55 Ordered UA W/MICROSCOPIC [URIN] Stat Lab 09/09/20 09:38 Ordered Acetaminophen [TylenoL] Med 09/09/20 12:55 Active 650 mg PO Q4H PRN Aspirin Med 09/10/20 09:00 Active 81 mg PO DAILY Ondansetron [Zofran] Med 09/09/20 12:55 Active 4 mg IVPUSH Q4H PRN Sodium Chloride 0.9% [Saline Flush] Med 09/09/20 09:38 Active 10 ml FLUSH ASDIRECTED PRN Sodium Chloride 0.9% [Saline Flush] Med 09/09/20 09:38 Active 2.5 ml FLUSH ASDIRECTED PRN atorvaSTATin [Lipitor] Med 09/09/20 21:00 Active 80 mg PO BEDTIME lisinopriL [Prinivil] Med 09/09/20 11:30 Active 20 mg PO DAILY Saline Lock Insert [OM.PC] Stat Oth 09/09/20 09:38 Ordered Resuscitation Status Routine Resus Stat 09/09/20 12:55 Ordered Medication Orders Acetaminophen (Tylenol) 650 mg PO Q4H PRN PRN Reason: Pain (Mild 1-3)/fever Aspirin (Aspirin) 81 mg PO DAILY RUPA Atorvastatin Calcium (Lipitor) 80 mg PO BEDTIME RUPA Lisinopril (Prinivil) 20 mg PO DAILY RUPA Last Admin: 09/09/20 11:36 Dose: 20 mg Documented by: MURDNIC Ondansetron HCl (Zofran) 4 mg IVPUSH Q4H PRN PRN Reason: Nausea Sodium Chloride (Saline Flush) 10 ml FLUSH ASDIRECTED PRN PRN Reason: Keep Vein Open Last Admin: 09/09/20 10:30 Dose: 10 ml Documented by: MURDNIC Sodium Chloride (Saline Flush) 2.5 ml FLUSH ASDIRECTED PRN PRN Reason: Keep Vein Open Last Admin: 09/09/20 10:32 Dose: 2.5 ml Documented by: MURDNIC Assessment/Plan Comment:: This 39 year old male admitted with hypertensive urgency, recent ischemic CVA with R posterior cerebral artery occlusion 1. Hypertensive Urgency - Start Lisinopril 40 mg, given 20 in the ED, continues to have elevated BP, give another 20 now - Labetolol PRN elevated BPs - headache has improved, blurred vision the same 2. Recent ischemic CVA: - Counseled heavily on tobacco cessation greater than 10 minutes - Will obtain TTE, A1c, Lipid panel and TSH - Consulted Dr Sylvester, needs further work including KEE. She will see patient and coordinate further work up - Add hypercoag studies, ordered and are send out labs - ASA daily - Atorvastatin 80 mg daily - Does not need PT/ST/OT at this time - Zio patch as outpatient. - Discussed current care with sister who is a nurse. She denies any family history of any coagulopathies. She does report that there mother suddenly at the age of 46 autopsy showed cardiomyopathy as the cause of . Their father at the age of 60 due to a neuroendocrine carcinoma. A grandfather had a meningioma and of a PE after a surgical procedure. 3. 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
[2020-09-09] MEDS ORDERED: Lisinopril 10 MG Tab PO ONE (13:42)
[2020-09-09] MEDS ORDERED: Labetalol 100 MG/20 ML MDV IVPUSH PRN (13:58)
[2020-09-09 14:52] LABS: HEMOGLOBIN A1C 8.1 % (4.5-6.2)
[2020-09-09] MEDS ORDERED: Glucagon,Human Recombinant 1 MG Vial IM PRN (15:05)
[2020-09-09] MEDS ORDERED: 50% Dextrose in Water 50 ML Syringe IV PRN (15:05)
[2020-09-09] MEDS ORDERED: Insulin Aspart 100 Units/ML 3 ML Pen SUBCUT SCH (17:00)
[2020-09-09] MEDS ORDERED: atorvaSTATin 40 MG Tab PO SCH (21:00)
[2020-09-09] MEDS ORDERED: Acetaminophen/HYDROcodone 325-5 MG Tab PO PRN (21:03)
--- NOTE | 2020-09-10 08:03 | PCM.DCSUM1 ---
Discharge Summary - Hospital Course Brief History: This 39-year-old male with P MH of obesity gastric band surgery and tobacco use presented to the ER with continued blurred vision and headache. He was seen and evaluated on 09/07 for symptoms of dizziness, seizure like activity which started on 09/05. 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 He left A and returns today. He reports blurred vision has gotten worse and headache comes and goes but is also worse. He denies following up with any other provider and DID NOT take Lisinopril/HCTZ or Keppra at home that was provided when leaving AMA. He denies chest pain or SOB. No abdominal pain, no neck pain and no concerns with GI/ systems. Denies seizure like activity since leaving. He denies alcohol use or recreational drug use. He repots chewing tobacco use, 1-1 1/2 tins every other day. Denies known family history of clotting disorders, no personal history of clots. He reports he had a stress test years ago, which was negative. Have gastric banding surgery 2 years ago and has last nearly 200 lbs, did weight 580 lbs at time of surgery. In the ED labwork WNL, glucose mildly elevated. EKG SR. Head CT shows old R infarct with encephalomalacia noted. CXR negative. He was noted to have HTN urgency, BP 220/110s, he was given labetalol IV which improved BP. Neurology consulted in [place], they recommended further stroke evaluation, but no interventions available 5 days post CVA. He will be admitted inpatient with HTN urgency, recent ischemic stroke. - Discharge Data Discharge Date: 09/09/20 Discharge Disposition: Against Medical Advice 07 Condition: Stable - Referral to Home Health Primary Care Physician: PCP None - Discharge Diagnosis/Problem(s) (1) Hypertensive emergency SNOMED Code(s): 925937366148107 ICD Code: I16.1 - HYPERTENSIVE EMERGENCY Status: Acute (2) Obesity SNOMED Code(s): 040672177, 687834494 ICD Code: E66.9 - OBESITY, UNSPECIFIED Status: Chronic (3) Hx of laparoscopic gastric banding SNOMED Code(s): 304743409 ICD Code: Z98.84 - BARIATRIC SURGERY STATUS Status: Chronic (4) Tobacco abuse counseling SNOMED Code(s): 851247375, 723464770, 418176235 ICD Code: Z71.6 - TOBACCO ABUSE COUNSELING Status: Acute (5) Tobacco abuse SNOMED Code(s): 320146015 ICD Code: Z72.0 - TOBACCO USE Status: Chronic (6) Cerebral artery occlusion SNOMED Code(s): 09238110 ICD Code: I66.9 - OCCLUSION AND STENOSIS OF UNSPECIFIED CEREBRAL ARTERY Status: Chronic (7) Ischemic stroke SNOMED Code(s): 646339227 ICD Code: I63.9 - CEREBRAL INFARCTION, UNSPECIFIED Status: Chronic (8) Noncompliance with medication regimen SNOMED Code(s): 502102062 ICD Code: Z91.14 - PATIENT'S OTHER NONCOMPLIANCE WITH MEDICATION REGIMEN Status: Chronic (9) Seizure-like activity SNOMED Code(s): 629838680 ICD Code: R56.9 - UNSPECIFIED CONVULSIONS Status: Chronic (10) DM type 2 (diabetes mellitus, type 2) SNOMED Code(s): 70403139 ICD Code: E11.9 - TYPE 2 DIABETES MELLITUS WITHOUT COMPLICATIONS Status: Acute Qualifiers: Diabetes mellitus jail insulin use: without jail use Diabetes mellitus complication status: with hyperglycemia Qualified Code(s): E11.65 - Type 2 diabetes mellitus with hyperglycemia - Patient Summary/Data Consults: Consultations 09/09/20 13:49 Consult to Physician [CONS] Routine 09/09/20 15:06 Consult to DM [Consult to Diabetic Nurse Specialist] [CONS] Routine Hospital Course: Admitting Diagnoses: Hypertensive urgency Blurred vision headache recent Ischemic CVA Occluded posterior R cerebral artery Dilip was admitted secondary to hypertensive urgency, treated with labetolol and Lisinopril. BP improved. Dr Sylvester consulted and was going to see patient today. ECHO was obtained. Patient suddenly decided to leave AMA before being seen by a provider in the evening. Hypercoag workup was not obtained. - Discharge Plan *PRESCRIPTION DRUG MONITORING PROGRAM REVIEWED*: Not Applicable *COPY OF PRESCRIPTION DRUG MONITORING REPORT IN PATIENT [place]: Not Applicable Home Medications: Home Meds . [No Known Home Meds] 09/09/20 [History] Oxygen Therapy Mode: Room Air Referrals: PCP,None [Primary Care Provider] - - Discharge Summary/Plan Comment DC Time >30 min.: No - Patient Data Vitals - Most Recent: Last Vital Signs Temp 98.2 F 09/09/20 20:00 Pulse 82 09/09/20 20:00 Resp 18 09/09/20 20:00 BP 165/82 H 09/09/20 20:00 Pulse Ox 98 09/09/20 20:00 Weight - Most Recent: 120.202 kg I&O - Last 24 hours: Intake & Output 09/09/20 09/10/20 09/10/20 22:59 06:59 14:59 Intake Total 800 Balance 800 Lab Results - Last 24 hrs: Laboratory Results - last 24 hr 09/09/20 09/09/20 09/09/20 Range/Units 09:30 09:30 09:30 WBC 6.58 (4.0-11.0) K/uL RBC 5.31 (4.50-5.90) M/uL Hgb 15.0 (13.0-17.0) g/dL Hct 46.3 (38.0-50.0) % MCV 87.2 (80.0-98.0) fL MCH 28.2 (27.0-32.0) pg MCHC 32.4 (31.0-37.0) g/dL RDW Std Deviation 44.1 (28.0-62.0) fl RDW Coeff of [place] 14 (11.0-15.0) % Plt Count 228 (150-400) K/uL MPV 10.90 (7.40-12.00) fL Neut % (Auto) 58.9 (48.0-80.0) % Lymph % (Auto) 28.3 (16.0-40.0) % [place] % (Auto) 7.0 (0.0-15.0) % Eos % (Auto) 5.2 (0.0-7.0) % Baso % (Auto) 0.6 (0.0-1.5) % Neut # (Auto) 3.9 (1.4-5.7) K/uL Lymph # (Auto) 1.9 (0.6-2.4) K/uL [place] # (Auto) 0.5 (0.0-0.8) K/uL Eos # (Auto) 0.3 (0.0-0.7) K/uL Baso # (Auto) 0.0 (0.0-0.1) K/uL Nucleated RBC % 0.0 /100WBC Nucleated RBCs # 0 K/uL Sodium 137 (136-148) mmol/L Potassium 3.5 (3.5-5.1) mmol/L Chloride 102 (98-107) mmol/L Carbon Dioxide 26.6 (21.0-32.0) mmol/L BUN 14 (7.0-18.0) mg/dL Creatinine 1.3 (0.8-1.3) mg/dL Est Cr Clr Drug Dosing 79.64 mL/min Estimated GFR (MDRD) > 60.0 ml/min Glucose 195 H (74-106) mg/dL POC Glucose (60-110) mg/dL Hemoglobin A1c (4.5-6.2) % Calcium 8.9 (8.5-10.1) mg/dL Phosphorus 3.7 (2.6-4.7) mg/dL Magnesium 1.7 L (1.8-2.4) mg/dL Total Bilirubin 1.0 (0.2-1.0) mg/dL AST 17 (15-37) IU/L ALT 28 (14-63) IU/L Alkaline Phosphatase 153 H (46-116) U/L Creatine Kinase 84 (26-308) U/L Troponin I < 0.050 (0.000-0.056) ng/mL B-Natriuretic Peptide 136 H (<100) PG/ML Total Protein 7.5 (6.4-8.2) g/dL Albumin 3.2 L (3.4-5.0) g/dL Globulin 4.3 H (2.6-4.0) g/dL Albumin/Globulin Ratio 0.7 L (0.9-1.6) TSH 3rd Generation (0.36-3.74) uIU/mL Ethyl Alcohol < 3.0 mg/dL SARS-CoV-2 RNA (ADAL) (NEGATIVE) SARS CoV-2 RNA Rapid ADAL (NEGATIVE) 09/09/20 09/09/20 09/09/20 Range/Units 09:30 10:34 10:34 WBC (4.0-11.0) K/uL RBC (4.50-5.90) M/uL Hgb (13.0-17.0) g/dL Hct (38.0-50.0) % MCV (80.0-98.0) fL MCH (27.0-32.0) pg MCHC (31.0-37.0) g/dL RDW Std Deviation (28.0-62.0) fl RDW Coeff of [place] (11.0-15.0) % Plt Count (150-400) K/uL MPV (7.40-12.00) fL Neut % (Auto) (48.0-80.0) % Lymph % (Auto) (16.0-40.0) % [place] % (Auto) (0.0-15.0) % Eos % (Auto) (0.0-7.0) % Baso % (Auto) (0.0-1.5) % Neut # (Auto) (1.4-5.7) K/uL Lymph # (Auto) (0.6-2.4) K/uL [place] # (Auto) (0.0-0.8) K/uL Eos # (Auto) (0.0-0.7) K/uL Baso # (Auto) (0.0-0.1) K/uL Nucleated RBC % /100WBC Nucleated RBCs # K/uL Sodium (136-148) mmol/L Potassium (3.5-5.1) mmol/L Chloride (98-107) mmol/L Carbon Dioxide (21.0-32.0) mmol/L BUN (7.0-18.0) mg/dL Creatinine (0.8-1.3) mg/dL Est Cr Clr Drug Dosing mL/min Estimated GFR (MDRD) ml/min Glucose (74-106) mg/dL POC Glucose (60-110) mg/dL Hemoglobin A1c (4.5-6.2) % Calcium (8.5-10.1) mg/dL Phosphorus (2.6-4.7) mg/dL Magnesium (1.8-2.4) mg/dL Total Bilirubin (0.2-1.0) mg/dL AST (15-37) IU/L ALT (14-63) IU/L Alkaline Phosphatase (46-116) U/L Creatine Kinase (26-308) U/L Troponin I (0.000-0.056) ng/mL B-Natriuretic Peptide (<100) PG/ML Total Protein (6.4-8.2) g/dL Albumin (3.4-5.0) g/dL Globulin (2.6-4.0) g/dL Albumin/Globulin Ratio (0.9-1.6) TSH 3rd Generation 4.36 H (0.36-3.74) uIU/mL Ethyl Alcohol mg/dL SARS-CoV-2 RNA (ADAL) NEGATIVE (NEGATIVE) SARS CoV-2 RNA Rapid ADAL NEGATIVE (NEGATIVE) 09/09/20 09/09/20 09/09/20 Range/Units 14:31 15:53 17:56 WBC (4.0-11.0) K/uL RBC (4.50-5.90) M/uL Hgb (13.0-17.0) g/dL Hct (38.0-50.0) % MCV (80.0-98.0) fL MCH (27.0-32.0) pg MCHC (31.0-37.0) g/dL RDW Std Deviation (28.0-62.0) fl RDW Coeff of [place] (11.0-15.0) % Plt Count (150-400) K/uL MPV (7.40-12.00) fL Neut % (Auto) (48.0-80.0) % Lymph % (Auto) (16.0-40.0) % [place] % (Auto) (0.0-15.0) % Eos % (Auto) (0.0-7.0) % Baso % (Auto) (0.0-1.5) % Neut # (Auto) (1.4-5.7) K/uL Lymph # (Auto) (0.6-2.4) K/uL [place] # (Auto) (0.0-0.8) K/uL Eos # (Auto) (0.0-0.7) K/uL Baso # (Auto) (0.0-0.1) K/uL Nucleated RBC % /100WBC Nucleated RBCs # K/uL Sodium (136-148) mmol/L Potassium (3.5-5.1) mmol/L Chloride (98-107) mmol/L Carbon Dioxide (21.0-32.0) mmol/L BUN (7.0-18.0) mg/dL Creatinine (0.8-1.3) mg/dL Est Cr Clr Drug Dosing mL/min Estimated GFR (MDRD) ml/min Glucose (74-106) mg/dL POC Glucose 129 H 205 H (60-110) mg/dL Hemoglobin A1c 8.1 H (4.5-6.2) % Calcium (8.5-10.1) mg/dL Phosphorus (2.6-4.7) mg/dL Magnesium (1.8-2.4) mg/dL Total Bilirubin (0.2-1.0) mg/dL AST (15-37) IU/L ALT (14-63) IU/L Alkaline Phosphatase (46-116) U/L Creatine Kinase (26-308) U/L Troponin I (0.000-0.056) ng/mL B-Natriuretic Peptide (<100) PG/ML Total Protein (6.4-8.2) g/dL Albumin (3.4-5.0) g/dL Globulin (2.6-4.0) g/dL Albumin/Globulin Ratio (0.9-1.6) TSH 3rd Generation (0.36-3.74) uIU/mL Ethyl Alcohol mg/dL SARS-CoV-2 RNA (ADAL) (NEGATIVE) SARS CoV-2 RNA Rapid ADAL (NEGATIVE) Med Orders - Current: Current Medications Discontinued Medications Acetaminophen (Tylenol) 650 mg PO Q4H PRN PRN Reason: Pain (Mild 1-3)/fever Aspirin (Aspirin) 81 mg PO DAILY RUPA Aspirin (Aspirin) 325 mg PO ONETIME ONE Stop: 09/09/20 13:00 Last Admin: 09/09/20 13:28 Dose: 325 mg Documented by: Atorvastatin Calcium (Lipitor) 80 mg PO BEDTIME [facility] Dextrose/Water (Dextrose 50% In Water) 50 ml IV ASDIRECTED PRN PRN Reason: Hypoglycemia Enoxaparin Sodium (Lovenox) 40 mg SUBCUT Q24H RUPA Glucagon (Glucagen) 1 mg IM ASDIRECTED PRN PRN Reason: Hypoglycemia Hydrochlorothiazide (Hydrochlorothiazide) 25 mg PO DAILY [facility] Lactated Ringer's (Ringers, Lactated) 1,000 mls @ 999 mls/hr IV .BOLUS ONE Stop: 09/09/20 10:38 Last Admin: 09/09/20 10:30 Dose: 999 mls/hr Documented by: Nicardipine HCl (Cardene 40 Mg In Ns 200 Ml) 40 mg in 200 mls @ 25 mls/hr IV TITRATE [facility]; Protocol Insulin Aspart (Novolog) 0 unit SUBCUT TIDAC [facility]; Protocol Last Admin: 09/09/20 18:29 Dose: 2 unit Documented by: Labetalol HCl (Normodyne) 20 mg IVPUSH ONETIME ONE; Protocol Stop: 09/09/20 09:41 Last Admin: 09/09/20 10:29 Dose: 20 mg Documented by: Labetalol HCl (Normodyne) 10 mg IVPUSH Q4H PRN PRN Reason: SBP>180/DBP>110 Last Admin: 09/09/20 14:29 Dose: 10 mg Documented by: Lisinopril (Prinivil) 20 mg PO DAILY [facility] Last Admin: 09/09/20 11:36 Dose: 20 mg Documented by: Lisinopril (Prinivil) 20 mg PO ONETIME ONE Stop: 09/09/20 13:43 Last Admin: 09/09/20 14:27 Dose: 20 mg Documented by: Lisinopril (Prinivil) 40 mg PO DAILY [facility] Ondansetron HCl (Zofran) 4 mg IVPUSH Q4H PRN PRN Reason: Nausea Sodium Chloride (Saline Flush) 10 ml FLUSH ASDIRECTED PRN PRN Reason: Keep Vein Open Last Admin: 09/09/20 10:30 Dose: 10 ml Documented by: Sodium Chloride (Saline Flush) 2.5 ml FLUSH ASDIRECTED PRN PRN Reason: Keep Vein Open Last Admin: 09/09/20 10:32 Dose: 2.5 ml Documented by:
[2020-09-10] MEDS ORDERED: Hydrochlorothiazide 25 MG Tab PO SCH (09:00)
[2020-09-10] MEDS ORDERED: Aspirin 81 MG Tab.Chew PO SCH (09:00)
[2020-09-10] MEDS ORDERED: Lisinopril 10 MG Tab PO SCH (09:00)
== END 2020-09-09 20:55 | disposition left against medical advice (07) | DRG 305 ==
LOC: MW.ED 09:24 → MW.MS 10:59
PROVIDERS: ADMIT Internal Medicine; ATTEND Internal Medicine
DX: I16.1 Hypertensive emergency (principal); E66.9 Obesity, unspecified; R56.9 Unspecified convulsions; E11.65 Type 2 diabetes mellitus with hyperglycemia; I10 Essential (primary) hypertension; F17.220 Nicotine dependence, chewing tobacco, uncomplicated; Z20.828 Contact with and (suspected) exposure to other viral communicable diseases; H53.8 Other visual disturbances; G93.89 Other specified disorders of brain; Z98.84 Bariatric surgery status; Z71.6 Tobacco abuse counseling; Z91.14 Patient's other noncompliance with medication regimen; Z91.030 Bee allergy status; I69.398 Other sequelae of cerebral infarction; Z68.37 Body mass index [BMI] 37.0-37.9, adult
CPT/HCPCS: 36415; 70450; 70450-26; 71045; 71045-26; 80053; 80307; 82550; 82962; 83036; 83735; 83880; 84100; 84443; 84484; 85025; 93005; 93306; 96374; 99291; 99292; A9270-GY; J1815-GY; J3490; J7120; U0002

== ENCOUNTER 2020-09-26 16:16 | Emergency (ER) | payer MEDICAID ==
[2020-09-26] MEDS ORDERED: Ondansetron 4 MG/2 ML SDV IVPUSH ONE (16:25)
[2020-09-26] MEDS ORDERED: Sodium Chloride 0.9% 10 ML Syringe FLUSH PRN (16:25)
[2020-09-26] MEDS ORDERED: Sodium Chloride 0.9% 2.5 ML Syringe FLUSH PRN (16:25)
--- NOTE | 2020-09-26 16:35 | EDM.PDOC ---
ED HPI GENERAL MEDICAL PROBLEM - General Chief Complaint: Neurological Problem Stated Complaint: EMS ARRIVAL Time Seen by Provider: 09/26/20 16:25 Source of Information: Reports: Patient, EMS History Limitations: Reports: No Limitations - History of Present Illness INITIAL COMMENTS - FREE TEXT/NARRATIVE: History of present illness: [Patient is 39-year-old male who presents by EMS for chief complaint of near syncope and lightheadedness and hypertension. He was seen here back in August, he had a syncopal event at that time and hit his head, imaging revealed evidence of a blockage in his cerebral vasculature and the plan was for him to be transferred to [place] for stroke. Patient eventually decided to leave AGAINST MEDICAL ADVICE. He is poorly compliant with his medications at home which include aspirin, lisinopril, and one other when he cannot recall. He states that earlier today he felt lightheaded and almost passed out but was able to sit down and rest before it happened. Has not taken his lisinopril today. Denies chest pain, shortness of breath, fever, chills, blurry vision, headache, or any other focal neurological deficit. There was question as to whether patient had some symptoms related to his speech when EMS first arrived, but patient denies any problems with his speech then or now.] Review of systems: As per history of present illness and below otherwise all systems reviewed and negative. Past medical history: As per history of present illness and as reviewed below otherwise noncontributory. Surgical history: As per history of present illness and as reviewed below otherwise noncontributory. Social history: No reported history of drug or alcohol abuse. Family history: As per history of present illness and as reviewed below otherwise noncontributory. Physical exam: General: Awake, alert, no acute distress, A&O X3. HEENT: Atraumatic, normocephalic, pupils reactive, negative for conjunctival pallor or scleral icterus, mucous membranes moist, throat clear, neck supple, nontender, trachea midline. Lungs: Clear to auscultation, breath sounds equal bilaterally, chest nontender. Heart: RRR, normal S1S2, no JVD. Abdomen: Soft, nondistended, nontender. Negative for masses or hepatosplenomegaly.obese. Pelvis: Stable nontender. Genitourinary: Deferred. Rectal: Deferred. Extremities: Atraumatic, no edema, Neurovascular unremarkable. Neuro: Motor and sensory grossly intact throughout. Exam nonfocal. Diagnostics: [] Therapeutics: [] Impression: [] Plan: [] Definitive disposition and diagnosis as appropriate pending reevaluation and review of above. - Related Data Allergies Allergy/AdvReac Type Severity Reaction Status Date / Time bee venom protein (honey bee) Allergy Airway Verified 09/26/20 16:21 Tightness Home Meds: Home Meds Aspirin [Yudelka Chewable Aspirin] 1 dose PO DAILY 09/26/20 [History] Lisinopril/Hydrochlorothiazide [Lisinopril-Hctz 20-25 mg Tab] 1 each PO DAILY #30 tablet 09/26/20 [Rx] lisinopriL [Lisinopril] 1 dose PO DAILY 09/26/20 [History] Past Medical History Cardiovascular History: Reports: Hypertension Neurological History: Reports: CVA Other Neuro History: Stroke 09/07/20 Endocrine/Metabolic History: Reports: Diabetes, Type II, Obesity/BMI 30+ - Infectious Disease History Infectious Disease History: Reports: Chicken Pox, Measles, Mumps - Past Surgical History GI Surgical History: Reports: Bariatric Procedure Social & Family History - Family History Family Medical History: Noncontributory - Tobacco Use Tobacco Use Status *Q: Never Tobacco User - Caffeine Use Caffeine Use: Reports: Energy Drinks, Soda - Recreational Drug Use Recreational Drug Use: No - Living Situation & Occupation Living situation: Reports: with Significant Other Occupation: Employed ED ROS GENERAL - Review of Systems Review Of Systems: Comprehensive ROS is negative, except as noted in HPI. ED EXAM, NEURO - Physical Exam Exam: See Below (see h and p) #1 Interpretation EKG Date: 09/26/20 Time: 16:24 Rhythm: NSR Rate (Beats/Min): 92 [place]: Normal P-Wave: Present QRS: Normal ST-T: Normal QT: Prolonged (qtc 516) Comparison: No Change (compared to 09-09-20) Course - Vital Signs Last Recorded V/S: Last Vital Signs Temp 35.6 C L 09/26/20 16:18 Pulse 90 09/26/20 18:05 Resp 19 09/26/20 18:05 BP 155/96 H 09/26/20 18:24 Pulse Ox 95 09/26/20 18:05 - Orders/Labs/Meds Orders: Active Orders 24 hr Category Date Time Status EKG Documentation Completion [RC] STAT Care 09/26/20 16:26 Active Sodium Chloride 0.9% [Saline Flush] Med 09/26/20 16:25 Active 10 ml FLUSH ASDIRECTED PRN Sodium Chloride 0.9% [Saline Flush] Med 09/26/20 16:25 Active 2.5 ml FLUSH ASDIRECTED PRN Saline Lock Insert [OM.PC] Stat Oth 09/26/20 16:26 Ordered Medication Orders Sodium Chloride (Saline Flush) 10 ml FLUSH ASDIRECTED PRN PRN Reason: Keep Vein Open Last Admin: 09/26/20 16:49 Dose: 10 ml Documented by: KORY Sodium Chloride (Saline Flush) 2.5 ml FLUSH ASDIRECTED PRN PRN Reason: Keep Vein Open Last Admin: 09/26/20 16:50 Dose: 2.5 ml Documented by: KORY Labs: Laboratory Tests 09/26/20 09/26/20 09/26/20 Range/Units 16:20 16:20 16:20 WBC 7.69 (4.0-11.0) K/uL RBC 5.38 (4.50-5.90) M/uL Hgb 15.4 (13.0-17.0) g/dL Hct 46.0 (38.0-50.0) % MCV 85.5 (80.0-98.0) fL MCH 28.6 (27.0-32.0) pg MCHC 33.5 (31.0-37.0) g/dL RDW Std Deviation 42.8 (28.0-62.0) fl RDW Coeff of [place] 14 (11.0-15.0) % Plt Count 170 (150-400) K/uL MPV 11.30 (7.40-12.00) fL Neut % (Auto) 59.1 (48.0-80.0) % Lymph % (Auto) 29.4 (16.0-40.0) % [place] % (Auto) 6.8 (0.0-15.0) % Eos % (Auto) 4.3 (0.0-7.0) % Baso % (Auto) 0.4 (0.0-1.5) % Neut # (Auto) 4.6 (1.4-5.7) K/uL Lymph # (Auto) 2.3 (0.6-2.4) K/uL [place] # (Auto) 0.5 (0.0-0.8) K/uL Eos # (Auto) 0.3 (0.0-0.7) K/uL Baso # (Auto) 0.0 (0.0-0.1) K/uL Nucleated RBC % 0.0 /100WBC Nucleated RBCs # 0 K/uL INR 1.06 APTT 28.0 (18.6-31.3) SEC Sodium 139 (136-148) mmol/L Potassium 3.7 (3.5-5.1) mmol/L Chloride 104 (98-107) mmol/L Carbon Dioxide 26.9 (21.0-32.0) mmol/L BUN 18 (7.0-18.0) mg/dL Creatinine 1.4 H (0.8-1.3) mg/dL Est Cr Clr Drug Dosing 73.96 mL/min Estimated GFR (MDRD) 55.8 ml/min Glucose 180 H (74-106) mg/dL Calcium 8.9 (8.5-10.1) mg/dL Total Bilirubin 1.4 H (0.2-1.0) mg/dL AST 21 (15-37) IU/L ALT 30 (14-63) IU/L Alkaline Phosphatase 128 H (46-116) U/L Troponin I 0.054 (0.000-0.056) ng/mL Total Protein 7.3 (6.4-8.2) g/dL Albumin 3.3 L (3.4-5.0) g/dL Globulin 4.0 (2.6-4.0) g/dL Albumin/Globulin Ratio 0.8 L (0.9-1.6) Meds: Medications Generic Name Dose Route Start Last Admin Trade Name Freq PRN Reason Stop Dose Admin Sodium Chloride 10 ml 09/26/20 16:25 09/26/20 16:49 Saline Flush FLUSH 10 ml ASDIRECTED PRN Administration Keep Vein Open Sodium Chloride 2.5 ml 09/26/20 16:25 09/26/20 16:50 Saline Flush FLUSH 2.5 ml ASDIRECTED PRN Administration Keep Vein Open Discontinued Medications Generic Name Dose Route Start Last Admin Trade Name Freq PRN Reason Stop Dose Admin Lisinopril/HCTZ 1 tab 09/26/20 18:18 Lisinopril-Hctz 10-12.5 Mg PO 09/26/20 18:19 ONETIME ONE Iopamidol 100 ml 09/26/20 17:48 09/26/20 17:49 Isovue-370 (76%) IVPUSH 09/26/20 17:49 100 ml ONETIME ONE Administration Labetalol HCl 20 mg 09/26/20 18:18 Normodyne IVPUSH 09/26/20 18:19 ONETIME ONE Protocol Lisinopril 10 mg 09/26/20 18:23 09/26/20 18:24 Prinivil PO 09/26/20 18:24 10 mg ONETIME ONE Administration Lisinopril Confirm 09/26/20 18:21 Prinivil Administered 09/26/20 18:22 Dose 10 mg .ROUTE .STK-MED ONE Ondansetron HCl 4 mg 09/26/20 16:25 09/26/20 16:49 Zofran IVPUSH 09/26/20 16:26 4 mg ONETIME ONE Administration Departure - Departure Time of Disposition: 18:47 Disposition: Home, Self-Care 01 Condition: Good Clinical Impression: Hypertensive urgency, Dizziness, History of stroke - Discharge Information Prescriptions: Lisinopril/Hydrochlorothiazide [Lisinopril-Hctz 20-25 mg Tab] 1 each PO DAILY #30 tablet Instructions: Managing Your Hypertension Referrals: PCP,None [Primary Care Provider] - Forms: ED Department Discharge Additional Instructions: [facility] - Neurology Professional Building [address] [place] [address], [address] [place] [address] [facility] - Internal Medicine [address] [place] [id number] Follow-up with primary care doctor and neurologist by establishing appointments with those listed above. Take all medications as prescribed. Return to the ER with any new or worsening symptoms. The following information is given to patients seen in the emergency department who are being discharged to home. This information is to outline your options for follow-up care. We provide all patients seen in our emergency department with a follow-up referral. The need for follow-up, as well as the timing and circumstances, are variable depending upon the specifics of your emergency department visit. If you don't have a primary care physician on staff, we will provide you with a referral. We always advise you to contact your personal physician following an emergency department visit to inform them of the circumstance of the visit and for follow-up with them and/or the need for any referrals to a consulting specialist. The emergency department will also refer you to a specialist when appropriate. This referral assures that you have the opportunity for follow-up care with a specialist. All of these measure are taken in an effort to provide you with optimal care, which includes your follow-up. Under all circumstances we always encourage you to contact your private physician who remains a resource for coordinating your care. When calling for follow-up care, please make the office aware that this follow-up is from your recent emergency room visit. If for any reason you are refused follow-up, please contact the [facility] Emergency Department at and asked to speak to the emergency department charge nurse. Sepsis Event Note (ED) - Evaluation Sepsis Screening Result: No Definite Risk - Focused Exam Vital Signs: Vital Signs Temp Pulse Resp BP BP Pulse Ox 09/26/20 18:24 155/96 H 09/26/20 18:05 90 19 163/96 H 95 09/26/20 17:46 89 18 158/88 H 96 09/26/20 17:18 90 182/107 H 87 L 09/26/20 17:12 92 186/118 H 86 L 09/26/20 16:45 90 18 185/112 H 96 09/26/20 16:18 35.6 C L 98 20 206/128 H 95 - My Orders Last 24 Hours: My Active Orders 09/26/20 16:25 Sodium Chloride 0.9% [Saline Flush] 10 ml FLUSH ASDIRECTED PRN Sodium Chloride 0.9% [Saline Flush] 2.5 ml FLUSH ASDIRECTED PRN 09/26/20 16:26 EKG Documentation Completion [RC] STAT Saline Lock Insert [OM.PC] Stat - Assessment/Plan Last 24 Hours: My Active Orders 09/26/20 16:25 Sodium Chloride 0.9% [Saline Flush] 10 ml FLUSH ASDIRECTED PRN Sodium Chloride 0.9% [Saline Flush] 2.5 ml FLUSH ASDIRECTED PRN 09/26/20 16:26 EKG Documentation Completion [RC] STAT Saline Lock Insert [OM.PC] Stat Assessment:: CTA of the head and neck along with a CT scan of the brain without contrast show evidence of the old infarcts and blockages, but no evidence for a new infarct or blockage. Patient's significant hypertension has very much improved, he is now in the 150s over 80s. He says he feels back to baseline. Denies any blurry vision or headache. No dizziness. No chest pain no shortness of breath. Asymptomatic. I discussed with him the importance of taking the medications he was prescribed, he requests a refill, I agreed to give him 1. I stressed the importance of him establishing primary care follow-up along with neurology follow-up in the outpatient setting. At this point it appears he has effectively developed collateral vessels to compensate for the findings seen back in August. I do not believe there would be any benefit at this time for admission, I do not believe he requires any sort of emergent interventions or procedures. He has no focal deficits. His NIH is 0. He is agreeable with plan for discharge home and follow-up in the outpatient setting. Return precautions provided.
[2020-09-26 16:54] LABS: CARBON DIOXIDE,CO2 26.9 mmol/L (21.0-32.0); POTASSIUM,K 3.7 mmol/L (3.5-5.1)
--- NOTE | 2020-09-26 17:06 | CR ---
INDICATION: Near syncope. COMPARISON: 09 September 2020. TECHNIQUE: One view. IMPRESSION: No change. No acute cardiopulmonary disease. Large dense likely mineralized 3 cm nodule/mass lateral left mid lung. CT again recommended for further characterization of this finding Dictated by Harmeet Mitchell MD @ Sep 26 2020 5:03PM Signed by Dr. Harmeet Mitchell @ Sep 26 2020 5:05PM
[2020-09-26] MEDS ORDERED: Iopamidol 755 Mg/ML 100 ML Bottle IVPUSH ONE (17:48)
[2020-09-26] MEDS ORDERED: Labetalol 100 MG/20 ML MDV IVPUSH ONE (18:18)
[2020-09-26] MEDS ORDERED: Lisinopril/Hydrochlorothiazide 10-12.5 MG Tab PO ONE (18:18)
[2020-09-26] MEDS ORDERED: Lisinopril 10 MG Tab ONE (18:21)
[2020-09-26] MEDS ORDERED: Lisinopril 10 MG Tab PO ONE (18:23)
--- NOTE | 2020-09-26 18:25 | CT ---
INDICATION: Near syncope. History of recent stroke in August. CT HEAD WITHOUT CONTRAST TECHNIQUE: Multiple axial CT images were performed through the head without intravenous contrast administration. COMPARISON: 09/09/[address] FINDINGS: No acute intracranial hemorrhage is identified. No extra-axial collections are evident and there is no mass effect or midline shift. Ventricles are normal in size and configuration. There is hypodensity involving the posteromedial right temporal lobe and medial right occipital lobe consistent with a late subacute to chronic infarct, smaller than the subacute infarct here seen on the previous exam. Brain parenchyma elsewhere appears normal with unremarkable mason-white differentiation. Osseous structures are within normal limits and no fractures are seen. Included portions of the paranasal sinuses and mastoid air cells are normally aerated aside from small polyps or retention cysts in the inferior maxillary sinuses. IMPRESSION: 1. No acute intracranial abnormality identified. 2. Late subacute to chronic infarct involving the posteromedial right temporal lobe and medial right occipital lobe. DESTINEE THOMPSON MD [facility] Dictated by Cody Thompson MD @ 09/26/2020 6:22:21 PM Dictated by: Cody Thompson MD @ 09/26/2020 18:23:46 (Electronically Signed)
--- NOTE | 2020-09-26 18:27 | CT ---
DATE: 09/26/2020. CLINICAL HISTORY: Patient with recent stroke and near syncopal episode. TECHNIQUE: Standard helical CT image acquisition through the head and neck was performed after intravenous contrast bolus enhancement. Multiplanar reconstructed images were performed and interpreted. COMPARISON: CTA head and neck dated 09/07/2020. FINDINGS: The origins of the great vessels from the aortic arch are patent. 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 The origin of the right vertebral artery is patent. The common carotid arteries are patent. There is no significant stenosis at the origin of the right internal carotid artery. There is no significant stenosis at the origin of the left internal carotid artery. The rest of the cervical segments of the internal carotid arteries are patent up to their intracranial segments noting marked tortuosity of both the left and right cervical segment. The intracranial segments of the internal carotid arteries are patent. The left vertebral artery is dominant and the right vertebral artery markedly hypoplastic. The left vertebral artery, which is occluded at its origin, is reconstituted in its mid cervical segment. The hypoplastic right vertebral artery is patent throughout its course. The intracranial segments of the vertebral arteries are patent, with the right vertebral artery terminating into PICA. The anterior and middle cerebral arteries are patent. The anterior communicating artery is visualized and within normal limits. The basilar trunk and posterior cerebral arteries are patent. There is normal opacification of major intracranial venous structures. The visualized lung apices are unremarkable The thyroid gland is unremarkable. There are degenerative changes in the cervical spine. IMPRESSION: 1. No evidence of intracranial proximal large vessel occlusion. 2. 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 3. Patent proximal internal carotid arteries with no evidence of hemodynamically significant luminal stenosis. Please note that all CT scans at this facility use dose modulation, iterative reconstruction, and/or weight-based dosing when appropriate to reduce radiation dose to as low as reasonably achievable. Dictated by Evelio Michael MD @ Sep 27 2020 8:53AM Signed by Dr. Evelio Michael @ Sep 27 2020 8:54AM
== END 2020-09-26 19:09 | disposition home or self-care (01) ==
LOC: MW.ED 16:16
DX: I16.0 Hypertensive urgency (principal); I10 Essential (primary) hypertension; E11.9 Type 2 diabetes mellitus without complications; E66.9 Obesity, unspecified; Z86.73 Personal history of transient ischemic attack (TIA), and cerebral infarction without residual deficits; Z91.030 Bee allergy status; Z79.82 Long term (current) use of aspirin; Z79.899 Other long term (current) drug therapy; Z68.41 Body mass index [BMI] 40.0-44.9, adult
CPT/HCPCS: 36415; 70450; 70496; 70498; 71045; 80053; 84484; 85025; 85610; 85730; 96374; 99285; A9270; J2405; Q9967; 93010; 99283

== ENCOUNTER 2020-09-27 06:41 | Emergency (ER) | payer MEDICAID ==
[2020-09-27] MEDS ORDERED: Sodium Chloride 0.9% 2.5 ML Syringe FLUSH PRN ×2 (06:46)
[2020-09-27] MEDS ORDERED: Sodium Chloride 0.9% 10 ML SDV IV PRN (06:46)
[2020-09-27] MEDS ORDERED: Sodium Chloride 0.9% 1,000 ML IV STA (06:46)
[2020-09-27] MEDS ORDERED: Sodium Chloride 0.9% 10 ML Syringe FLUSH PRN (06:46)
[2020-09-27] MEDS ORDERED: Iopamidol 755 MG/ML 500 ML Multipack Bottle IVPUSH STA (07:09)
[2020-09-27] MEDS ORDERED: Sodium Chloride 0.9% 1,000 ML IV ONE (07:14)
[2020-09-27] MEDS ORDERED: methylPREDNISolone Sodium Succinate 125 MG/2 ML SDV IVPUSH ONE (07:14)
[2020-09-27] MEDS ORDERED: Famotidine 20 MG/2 ML SDV IVPUSH ONE (07:14)
[2020-09-27] MEDS ORDERED: diphenhydrAMINE 50 MG/ML SDV IVPUSH ONE (07:14)
[2020-09-27] MEDS ORDERED: Labetalol 100 MG/20 ML MDV IVPUSH ONE ×2 (07:15→09:35)
[2020-09-27] MEDS ORDERED: diphenhydrAMINE 50 MG/ML SDV ONE (07:16)
[2020-09-27] MEDS ORDERED: methylPREDNISolone Sodium Succinate 125 MG/2 ML SDV ONE (07:16)
[2020-09-27] MEDS ORDERED: Famotidine 20 MG/2 ML SDV ONE (07:17)
[2020-09-27] MEDS ORDERED: Labetalol 100 MG/20 ML MDV ONE (07:17)
--- NOTE | 2020-09-27 07:26 | CR ---
HISTORY: Code stroke. COMPARISON: 09/26/2020, 1643 hours. TECHNIQUE: Chest one-view portable upright. FINDINGS: Indeterminate opacity measuring approximately 2.5 cm in the left mid lung zone, stable. Consider chest CT. There is no new airspace disease. Heart size and pulmonary vasculature are within normal limits. Osseous structures are intact. IMPRESSION: Stable exam when compared with 09/26/2020, 1643 hours. Dictated by Homero Rubio MD @ Sep 27 2020 7:24AM Signed by Dr. Homero Rubio @ Sep 27 2020 7:26AM
--- NOTE | 2020-09-27 07:36 | EDM.PDOC ---
ED HPI GENERAL MEDICAL PROBLEM - General Chief Complaint: Neuro Symptoms/Deficits Stated Complaint: AMB. Time Seen by Provider: 09/27/20 07:13 Source of Information: Reports: Patient History Limitations: Reports: No Limitations - History of Present Illness INITIAL COMMENTS - FREE TEXT/NARRATIVE: History of present illness: [Patient is 39-year-old male who was brought in this morning just prior to my arrival to my shift with concern for possible stroke. I saw the patient yesterday, he had hypertensive emergency with associated blurry vision, dizziness, and after a work-up which included a CT scan of his brain and a CTA of his head and neck it revealed evidence of a previous stroke back in August. 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 Patient was put on antihypertensives and told to start taking aspirin, he says he takes aspirin but has not been taking his antihypertensives as instructed. Yesterday we gave him a dose of lisinopril prior to his discharge. I sent over prescription for him to start lisinopril/hydrochlorothiazide over the next month and gave him follow-up with neurology and internal medicine. This morning he told his to call 911 because he was experiencing dizziness and trouble with his speech and a swollen tongue.] Review of systems: As per history of present illness and below otherwise all systems reviewed and negative. Past medical history: As per history of present illness and as reviewed below otherwise noncontribu tory. Surgical history: As per history of present illness and as reviewed below otherwise noncontributory. Social history: No reported history of drug or alcohol abuse. Family history: As per history of present illness and as reviewed below otherwise noncontributory. Physical exam: General: Awake, alert, mild distress, oriented to person and place. HEENT: Atraumatic, normocephalic, pupils reactive, negative for conjunctival pallor or scleral icterus, mucous membranes moist, tongue enlarged, no stridor or drooling. Lungs: Clear to auscultation, breath sounds equal bilaterally, chest nontender. Heart: RRR, normal S1S2, no JVD. Abdomen: Soft, nondistended, nontender. Negative for masses or hepatosplenomegaly. Pelvis: Stable nontender. Genitourinary: Deferred. Rectal: Deferred. Extremities: Atraumatic, no edema, Neurovascular unremarkable. Neuro: Motor and sensory grossly intact throughout. speech is mildly dysarthric but I believe this is due to his tongue size. Nurse reported initial deficits involving visual chaudhari, obtundation, speech. For me, patient is drowsy but arousable. visual chaudhari show no obvious deficit and speech believed to be due to angioedema Diagnostics: [] Therapeutics: [] Impression: [] Plan: [] Definitive disposition and diagnosis as appropriate pending reevaluation and review of above. - Related Data Allergies Allergy/AdvReac Type Severity Reaction Status Date / Time bee venom protein (honey bee) Allergy Airway Verified 09/27/20 07:24 Tightness Home Meds: Home Meds Aspirin [Yudelka Chewable Aspirin] 1 dose PO DAILY 09/26/20 [History] Lisinopril/Hydrochlorothiazide [Lisinopril-Hctz 20-25 mg Tab] 1 each PO DAILY #30 tablet 09/26/20 [Rx] lisinopriL [Lisinopril] 1 dose PO DAILY 09/26/20 [History] Past Medical History Cardiovascular History: Reports: Hypertension Neurological History: Reports: CVA Other Neuro History: Stroke 09/07/20 Endocrine/Metabolic History: Reports: Diabetes, Type II, Obesity/BMI 30+ - Infectious Disease History Infectious Disease History: Reports: Chicken Pox, Measles, Mumps - Past Surgical History GI Surgical History: Reports: Bariatric Procedure Social & Family History - Family History Family Medical History: Noncontributory - Caffeine Use Caffeine Use: Reports: Energy Drinks, Soda - Living Situation & Occupation Living situation: Reports: with Significant Other Occupation: Employed ED ROS GENERAL - Review of Systems Review Of Systems: Comprehensive ROS is negative, except as noted in HPI. ED EXAM, NEURO - Physical Exam Exam: See Below (see h and p) ED NEURO PROCEDURES - Endotracheal Intubation Time of Intubation: 03:20 ET Intubation Indication: Airway Protection Preparation: Suction, Balloon Tested, BVM Set Up, Difficult Airway Equip Airway Assessment: Obese, Large Tongue Pre-Oxygenation: 100% FiO2 Anesthesia Meds: Etomidate, Succinylcholine Placement: Orotracheal Cords Visualized: Yes ETT Size In mm: 8 Number of Attempts: 1 Confirmed By: CO2 Indicator, Bilateral Breath Sounds, Chest Xray Tube Secured By: By RT #1 Interpretation EKG Date: 09/27/20 Time: 07:10 Rhythm: NSR Rate (Beats/Min): 87 [place]: Normal P-Wave: Present QRS: Normal ST-T: Normal QT: Normal Course - Vital Signs Text/Narrative:: This patient was very complex with multiple problems going on at once. These include angioedema, possible stroke, altered mental status hypertensive emergency, positive for methamphetamines. CTA of his head is concerning for possible new finding of a basilar artery occlusion when compared to the imaging performed yesterday. Radiologist was not sure, said it could be artifact. I consulted with multiple neurologists including Dr. Alford ([place]), Dr. Garcia ([place]) and Dr. Singh ([place]). After these consults, Dr. Singh said the basilar artery findings look like they could be artifact, but could also be new clot. He recommended that we start a heparin drip for the patient. We monitor the patient's airway for several hours, I gave him FFP because initially his tongue was quite large and I was concerned due to his mental status about potential airway problem. Patient received 2 units of FFP. I believe they did help, on reevaluation his tongue did seem to decrease in size. Patient has had some agitation, he has calmed down with multiple doses of IV Ativan. Dr. Singh requested we try to keep BP between 160-180 SBP. Patient has had multiple doses of IV labetalol, we started him on a nicardipine drip, got his blood pressure down below 180, have been monitoring since, did not need to continue the drip so it was paused. We are having a difficult time finding bed availability and weather has proven difficult for flights to come in or out of [place]. When patient was discharged yesterday he had normal mental status, was asymptomatic, I spoke with his who said he was normal last night, that he woke up early in the morning around 6 AM with his trouble speaking, complaining of dizziness, and his mental status issues. My initial thought was that his trouble speaking was related to his tongue size, but he did have some altered mentation which is the reason why the overnight physician ordered the CT and CTA. It is unclear to me if his altered mental status is related to his vascular findings, his methamphetamine finding, possibly hypertensive emergency, or combination of those factors. My first concern has been managing his airway which has remained stable during his stay here in the ER. Eventually we intubated him, intubation went well without any complications. Eventually flight crew got here, patient was put on propofol and rocuronium prior to being transferred via flight to [place] for definitive management and further intervention with neurology and potentially interventional radiology. He had multiple conditions, was a challenging case, but he left our care here in stable condition. Last Recorded V/S: Last Vital Signs Temp 37.5 C 09/27/20 12:20 Pulse 103 H 09/27/20 12:20 Resp 16 09/27/20 06:42 BP 155/85 H 09/27/20 12:20 Pulse Ox 93 L 09/27/20 12:20 - Orders/Labs/Meds Orders: Active Orders 24 hr Category Date Time Status Assess Neurological Status [RC] ASDIRECTED Care 09/27/20 06:46 Active Bedrest [RC] ASDIRECTED Care 09/27/20 06:46 Active Cardiac Monitoring [RC] . DIRECTED Care 09/27/20 06:46 Active EKG Documentation Completion [RC] STAT Care 09/27/20 06:46 Active Head of Bed Elevation [RC] ASDIRECTED Care 09/27/20 06:46 Active Height and Weight [RC] UPON Care 09/27/20 06:46 Active Initiate Acute Stroke Protocol [RC] STAT Care 09/27/20 06:46 Active NIH Stroke Scale [RC] ASDIRECTED Care 09/27/20 06:46 Active Nursing Bedside Swallow Screen [RC] ASDIRECTED Care 09/27/20 06:46 Active Oxygen Therapy [RC] ASDIRECTED Care 09/27/20 06:46 Active Peripheral IV Care [RC] ASDIRECTED Care 09/27/20 06:46 Active Stroke Education, General [RC] Click to Edit Care 09/27/20 06:46 Active Vital Signs [RC] Q15M Care 09/27/20 06:46 Active FRESH FROZEN PLASMA [BBK] Stat Lab 09/27/20 07:32 Results PTT,PARTIAL THROMBOPLSTIN TIME [COAG] Q6H Lab 09/27/20 18:30 Ordered PTT,PARTIAL THROMBOPLSTIN TIME [COAG] Q6H Lab 09/28/20 00:30 Ordered PTT,PARTIAL THROMBOPLSTIN TIME [COAG] Q6H Lab 09/28/20 06:30 Ordered PTT,PARTIAL THROMBOPLSTIN TIME [COAG] Q6H Lab 09/28/20 12:30 Ordered PTT,PARTIAL THROMBOPLSTIN TIME [COAG] Q6H Lab 09/28/20 18:30 Ordered PTT,PARTIAL THROMBOPLSTIN TIME [COAG] Q6H Lab 09/29/20 00:30 Ordered TYPE AND SCREEN [BBK] Stat Lab 09/27/20 07:32 Results Heparin Sod,Pork In 0.45% Nacl [Heparin-1/2Ns 25,000 Med 09/27/20 12:15 Active Units/500] 25,000 unit in 500 ml IV TITRATE Sodium Chloride 0.9% [Normal Saline] Med 09/27/20 06:46 Active 10 ml IV ASDIRECTED PRN Sodium Chloride 0.9% [Saline Flush] Med 09/27/20 06:46 Active 10 ml FLUSH ASDIRECTED PRN Sodium Chloride 0.9% [Saline Flush] Med 09/27/20 06:46 Active 2.5 ml FLUSH ASDIRECTED PRN Sodium Chloride 0.9% [Saline Flush] Med 09/27/20 06:46 Active 2.5 ml FLUSH ASDIRECTED PRN niCARdipine/Normal Saline [Cardene 40 MG in NS 200 ML] Med 09/27/20 10:45 Active 40 mg in 200 ml IV TITRATE Peripheral IV Insertion Adult [OM.PC] Stat Oth 09/27/20 06:46 Ordered Transfuse Fresh Frozen Plasma [COMM] Stat Oth 09/27/20 07:22 Ordered Medication Orders Nicardipine HCl (Cardene 40 Mg In Ns 200 Ml) 40 mg in 200 mls @ 25 mls/hr IV TITRATE RUPA; Protocol Last Titration: 09/27/20 12:24 Dose: 0 mg/hr, 0 mls/hr Documented by: Admin: 09/27/20 11:31 Dose: 5 mg/hr, 25 mls/hr Documented by: CHARU Heparin Sodium/Sodium Chloride (Heparin-1/2ns 25,000 Units/500) 25,000 unit in 500 mls @ 52.907 mls/hr IV TITRATE RUPA; Protocol Last Admin: 09/27/20 12:42 Dose: 18 units/kg/hr, 52.907 mls/hr Documented by: [email or web address] Cosigned by: [id number] Sodium Chloride (Saline Flush) 2.5 ml FLUSH ASDIRECTED PRN PRN Reason: Keep Vein Open Last Admin: 09/27/20 07:29 Dose: 2.5 ml Documented by: CHARU Sodium Chloride (Saline Flush) 10 ml FLUSH ASDIRECTED PRN PRN Reason: Keep Vein Open Last Admin: 09/27/20 07:30 Dose: 10 ml Documented by: CHARU Sodium Chloride (Saline Flush) 2.5 ml FLUSH ASDIRECTED PRN PRN Reason: Keep Vein Open Sodium Chloride (Normal Saline) 10 ml IV ASDIRECTED PRN PRN Reason: IV Use Labs: Laboratory Tests 09/27/20 09/27/20 09/27/20 Range/Units 07:18 07:18 07:18 WBC 7.28 (4.0-11.0) K/uL RBC 5.04 (4.50-5.90) M/uL Hgb 14.3 (13.0-17.0) g/dL Hct 43.5 (38.0-50.0) % MCV 86.3 (80.0-98.0) fL MCH 28.4 (27.0-32.0) pg MCHC 32.9 (31.0-37.0) g/dL RDW Std Deviation 43.8 (28.0-62.0) fl RDW Coeff of [place] 14 (11.0-15.0) % Plt Count 166 (150-400) K/uL MPV 11.20 (7.40-12.00) fL Neut % (Auto) 66.0 (48.0-80.0) % Lymph % (Auto) 23.6 (16.0-40.0) % [place] % (Auto) 6.2 (0.0-15.0) % Eos % (Auto) 3.7 (0.0-7.0) % Baso % (Auto) 0.5 (0.0-1.5) % Neut # (Auto) 4.8 (1.4-5.7) K/uL Lymph # (Auto) 1.7 (0.6-2.4) K/uL [place] # (Auto) 0.5 (0.0-0.8) K/uL Eos # (Auto) 0.3 (0.0-0.7) K/uL Baso # (Auto) 0.0 (0.0-0.1) K/uL Nucleated RBC % 0.0 /100WBC Nucleated RBCs # 0 K/uL INR 1.05 APTT 27.7 (18.6-31.3) SEC Sodium 138 (136-148) mmol/L Potassium 3.9 (3.5-5.1) mmol/L Chloride 103 (98-107) mmol/L Carbon Dioxide 27.3 (21.0-32.0) mmol/L BUN 20 H (7.0-18.0) mg/dL Creatinine 1.5 H (0.8-1.3) mg/dL Est Cr Clr Drug Dosing TNP Estimated GFR (MDRD) 51.6 ml/min Glucose 213 H (74-106) mg/dL Calcium 9.0 (8.5-10.1) mg/dL Total Bilirubin 1.0 (0.2-1.0) mg/dL AST 17 (15-37) IU/L ALT 23 (14-63) IU/L Alkaline Phosphatase 119 H (46-116) U/L Troponin I < 0.050 (0.000-0.056) ng/mL Total Protein 6.9 (6.4-8.2) g/dL Albumin 2.9 L (3.4-5.0) g/dL Globulin 4.0 (2.6-4.0) g/dL Albumin/Globulin Ratio 0.7 L (0.9-1.6) TSH 3rd Generation 1.42 (0.36-3.74) uIU/mL Urine Color Urine Appearance Urine pH (5.0-8.0) Ur Specific [place] (1.001-1.035) Urine Protein (NEGATIVE) mg/dL Urine Glucose (UA) (NEGATIVE) mg/dL Urine Ketones (NEGATIVE) mg/dL Urine Occult Blood (NEGATIVE) Urine Nitrite (NEGATIVE) Urine Bilirubin (NEGATIVE) Urine Urobilinogen (<2.0) EU/dL Ur Leukocyte Esterase (NEGATIVE) Urine RBC (0-2/HPF) Urine WBC (0-5/HPF) Ur Epithelial Cells (NONE-FEW) Urine Bacteria (NEGATIVE) Urine Mucus (NONE-MOD) Urine Opiates Screen (NEGATIVE) Ur Oxycodone Screen (NEGATIVE) Urine Methadone Screen (NEGATIVE) Ur Barbiturates Screen (NEGATIVE) Ur Phencyclidine Scrn (NEGATIVE) Ur Amphetamine Screen (NEGATIVE) U Methamphetamines Scrn (NEGATIVE) U Benzodiazepines Scrn (NEGATIVE) U Cocaine Metab Screen (NEGATIVE) U Marijuana (THC) Screen (NEGATIVE) Ethyl Alcohol < 3.0 mg/dL SARS-CoV-2 RNA (ADAL) (NEGATIVE) Blood Type 09/27/20 09/27/20 09/27/20 Range/Units 07:32 08:00 08:23 WBC (4.0-11.0) K/uL RBC (4.50-5.90) M/uL Hgb (13.0-17.0) g/dL Hct (38.0-50.0) % MCV (80.0-98.0) fL MCH (27.0-32.0) pg MCHC (31.0-37.0) g/dL RDW Std Deviation (28.0-62.0) fl RDW Coeff of [place] (11.0-15.0) % Plt Count (150-400) K/uL MPV (7.40-12.00) fL Neut % (Auto) (48.0-80.0) % Lymph % (Auto) (16.0-40.0) % [place] % (Auto) (0.0-15.0) % Eos % (Auto) (0.0-7.0) % Baso % (Auto) (0.0-1.5) % Neut # (Auto) (1.4-5.7) K/uL Lymph # (Auto) (0.6-2.4) K/uL [place] # (Auto) (0.0-0.8) K/uL Eos # (Auto) (0.0-0.7) K/uL Baso # (Auto) (0.0-0.1) K/uL Nucleated RBC % /100WBC Nucleated RBCs # K/uL INR APTT (18.6-31.3) SEC Sodium (136-148) mmol/L Potassium (3.5-5.1) mmol/L Chloride (98-107) mmol/L Carbon Dioxide (21.0-32.0) mmol/L BUN (7.0-18.0) mg/dL Creatinine (0.8-1.3) mg/dL Est Cr Clr Drug Dosing Estimated GFR (MDRD) ml/min Glucose (74-106) mg/dL Calcium (8.5-10.1) mg/dL Total Bilirubin (0.2-1.0) mg/dL AST (15-37) IU/L ALT (14-63) IU/L Alkaline Phosphatase (46-116) U/L Troponin I (0.000-0.056) ng/mL Total Protein (6.4-8.2) g/dL Albumin (3.4-5.0) g/dL Globulin (2.6-4.0) g/dL Albumin/Globulin Ratio (0.9-1.6) TSH 3rd Generation (0.36-3.74) uIU/mL Urine Color YELLOW Urine Appearance CLEAR Urine pH 6.0 (5.0-8.0) Ur Specific [place] >= 1.030 (1.001-1.035) Urine Protein >=300 H (NEGATIVE) mg/dL Urine Glucose (UA) 100 H (NEGATIVE) mg/dL Urine Ketones NEGATIVE (NEGATIVE) mg/dL Urine Occult Blood TRACE-INTACT H (NEGATIVE) Urine Nitrite NEGATIVE (NEGATIVE) Urine Bilirubin NEGATIVE (NEGATIVE) Urine Urobilinogen 1.0 (<2.0) EU/dL Ur Leukocyte Esterase NEGATIVE (NEGATIVE) Urine RBC 1-3 (0-2/HPF) Urine WBC 0-2 (0-5/HPF) Ur Epithelial Cells OCCASIONAL (NONE-FEW) Urine Bacteria RARE (NEGATIVE) Urine Mucus LIGHT (NONE-MOD) Urine Opiates Screen (NEGATIVE) Ur Oxycodone Screen (NEGATIVE) Urine Methadone Screen (NEGATIVE) Ur Barbiturates Screen (NEGATIVE) Ur Phencyclidine Scrn (NEGATIVE) Ur Amphetamine Screen (NEGATIVE) U Methamphetamines Scrn (NEGATIVE) U Benzodiazepines Scrn (NEGATIVE) U Cocaine Metab Screen (NEGATIVE) U Marijuana (THC) Screen (NEGATIVE) Ethyl Alcohol mg/dL SARS-CoV-2 RNA (ADAL) NEGATIVE (NEGATIVE) Blood Type O POSITIVE 09/27/20 09/27/20 Range/Units 08:23 12:36 WBC (4.0-11.0) K/uL RBC (4.50-5.90) M/uL Hgb (13.0-17.0) g/dL Hct (38.0-50.0) % MCV (80.0-98.0) fL MCH (27.0-32.0) pg MCHC (31.0-37.0) g/dL RDW Std Deviation (28.0-62.0) fl RDW Coeff of [place] (11.0-15.0) % Plt Count (150-400) K/uL MPV (7.40-12.00) fL Neut % (Auto) (48.0-80.0) % Lymph % (Auto) (16.0-40.0) % [place] % (Auto) (0.0-15.0) % Eos % (Auto) (0.0-7.0) % Baso % (Auto) (0.0-1.5) % Neut # (Auto) (1.4-5.7) K/uL Lymph # (Auto) (0.6-2.4) K/uL [place] # (Auto) (0.0-0.8) K/uL Eos # (Auto) (0.0-0.7) K/uL Baso # (Auto) (0.0-0.1) K/uL Nucleated RBC % /100WBC Nucleated RBCs # K/uL INR APTT 27.1 (18.6-31.3) SEC Sodium (136-148) mmol/L Potassium (3.5-5.1) mmol/L Chloride (98-107) mmol/L Carbon Dioxide (21.0-32.0) mmol/L BUN (7.0-18.0) mg/dL Creatinine (0.8-1.3) mg/dL Est Cr Clr Drug Dosing Estimated GFR (MDRD) ml/min Glucose (74-106) mg/dL Calcium (8.5-10.1) mg/dL Total Bilirubin (0.2-1.0) mg/dL AST (15-37) IU/L ALT (14-63) IU/L Alkaline Phosphatase (46-116) U/L Troponin I (0.000-0.056) ng/mL Total Protein (6.4-8.2) g/dL Albumin (3.4-5.0) g/dL Globulin (2.6-4.0) g/dL Albumin/Globulin Ratio (0.9-1.6) TSH 3rd Generation (0.36-3.74) uIU/mL Urine Color Urine Appearance Urine pH (5.0-8.0) Ur Specific [place] (1.001-1.035) Urine Protein (NEGATIVE) mg/dL Urine Glucose (UA) (NEGATIVE) mg/dL Urine Ketones (NEGATIVE) mg/dL Urine Occult Blood (NEGATIVE) Urine Nitrite (NEGATIVE) Urine Bilirubin (NEGATIVE) Urine Urobilinogen (<2.0) EU/dL Ur Leukocyte Esterase (NEGATIVE) Urine RBC (0-2/HPF) Urine WBC (0-5/HPF) Ur Epithelial Cells (NONE-FEW) Urine Bacteria (NEGATIVE) Urine Mucus (NONE-MOD) Urine Opiates Screen NEGATIVE (NEGATIVE) Ur Oxycodone Screen NEGATIVE (NEGATIVE) Urine Methadone Screen NEGATIVE (NEGATIVE) Ur Barbiturates Screen NEGATIVE (NEGATIVE) Ur Phencyclidine Scrn NEGATIVE (NEGATIVE) Ur Amphetamine Screen POSITIVE (NEGATIVE) U Methamphetamines Scrn POSITIVE (NEGATIVE) U Benzodiazepines Scrn NEGATIVE (NEGATIVE) U Cocaine Metab Screen NEGATIVE (NEGATIVE) U Marijuana (THC) Screen NEGATIVE (NEGATIVE) Ethyl Alcohol mg/dL SARS-CoV-2 RNA (ADAL) (NEGATIVE) Blood Type Meds: Medications Generic Name Dose Route Start Last Admin Trade Name Freq PRN Reason Stop Dose Admin Nicardipine HCl 40 mg in 200 mls @ 25 mls/hr 09/27/20 10:45 09/27/20 12:24 Cardene 40 Mg In Ns 200 Ml IV 0 mg/hr TITRATE RUPA 0 mls/hr Titration Protocol 5 MG/HR Heparin Sodium/Sodium Chloride 25,000 unit in 500 mls @ 52.907 mls/hr 09/27/20 12:15 09/27/20 12:42 Heparin-1/2ns 25,000 Units/500 IV 18 units/kg/hr TITRATE RUPA 52.907 mls/hr Administration Protocol 18 UNITS/KG/HR Sodium Chloride 2.5 ml 09/27/20 06:46 09/27/20 07:29 Saline Flush FLUSH 2.5 ml ASDIRECTED PRN Administration Keep Vein Open Sodium Chloride 10 ml 09/27/20 06:46 09/27/20 07:30 Saline Flush FLUSH 10 ml ASDIRECTED PRN Administration Keep Vein Open Sodium Chloride 2.5 ml 09/27/20 06:46 Saline Flush FLUSH ASDIRECTED PRN Keep Vein Open Sodium Chloride 10 ml 09/27/20 06:46 Normal Saline IV ASDIRECTED PRN IV Use Discontinued Medications Generic Name Dose Route Start Last Admin Trade Name Edin PRN Reason Stop Dose Admin Acetaminophen Confirm 09/27/20 15:18 Tylenol Administered 09/27/20 15:19 Dose 650 mg .ROUTE .STK-MED ONE Diphenhydramine HCl 50 mg 09/27/20 07:14 09/27/20 07:18 Benadryl IVPUSH 09/27/20 07:15 50 mg ONETIME ONE Administration Diphenhydramine HCl Confirm 09/27/20 07:16 09/27/20 07:29 Benadryl Administered 09/27/20 07:17 Not Given Dose 50 mg .ROUTE .STK-MED ONE Famotidine 20 mg 09/27/20 07:14 09/27/20 07:21 Pepcid IVPUSH 09/27/20 07:15 20 mg ONETIME ONE Administration Famotidine Confirm 09/27/20 07:17 09/27/20 07:23 Pepcid Administered 09/27/20 07:18 Not Given Dose 20 mg .ROUTE .STK-MED ONE Sodium Chloride 1,000 mls @ 125 mls/hr 09/27/20 06:46 09/27/20 07:46 Normal Saline IV 09/27/20 14:45 999 mls/hr NOW STA Infusion Sodium Chloride 1,000 mls @ 999 mls/hr 09/27/20 07:14 Normal Saline IV 09/27/20 08:14 .Bolus ONE Nicardipine HCl Confirm 09/27/20 15:23 Cardene 20 Mg In Ns 200 Ml Administered 09/27/20 15:24 Dose 20 mg in 200 mls @ as directed .ROUTE .STK-MED ONE Iopamidol 100 ml 09/27/20 07:09 09/27/20 07:09 Isovue Multipack-370 (76%) IVPUSH 09/27/20 07:10 100 ml ONETIME STA Administration Labetalol HCl 20 mg 09/27/20 07:15 09/27/20 07:28 Normodyne IVPUSH 09/27/20 07:16 20 mg ONETIME ONE Administration Protocol Labetalol HCl Confirm 09/27/20 07:17 09/27/20 07:23 Normodyne Administered 09/27/20 07:18 Not Given Dose 100 mg .ROUTE .STK-MED ONE Labetalol HCl 20 mg 09/27/20 09:35 09/27/20 09:36 Normodyne IVPUSH 09/27/20 09:36 20 mg ONETIME ONE Administration Protocol Lorazepam 0.5 mg 09/27/20 08:08 09/27/20 08:16 Ativan IVPUSH 09/27/20 08:09 Not Given ONETIME ONE Lorazepam 1 mg 09/27/20 08:11 09/27/20 08:15 Ativan IVPUSH 09/27/20 08:12 1 mg ONETIME ONE Administration Lorazepam Confirm 09/27/20 08:12 09/27/20 08:22 Ativan Administered 09/27/20 08:13 Not Given Dose 2 mg .ROUTE .STK-MED ONE Lorazepam 1 mg 09/27/20 08:30 09/27/20 08:46 Ativan IVPUSH 09/27/20 08:31 1 mg ONETIME ONE Administration Lorazepam 1 mg 09/27/20 09:07 09/27/20 09:24 Ativan IVPUSH 09/27/20 09:08 1 mg ONETIME ONE Administration Methylprednisolone Sodium Succinate 125 mg 09/27/20 07:14 09/27/20 07:24 Solu-Medrol IVPUSH 09/27/20 07:15 125 mg ONETIME ONE Administration Methylprednisolone Sodium Succinate Confirm 09/27/20 07:16 09/27/20 07:23 Solu-Medrol Administered 09/27/20 07:17 Not Given Dose 125 mg .ROUTE .STK-MED ONE Departure - Departure Time of Disposition: 12:30 Disposition: DC/Tfer to Acute Hospital 02 Condition: Serious Clinical Impression: Altered mental status, Vertebral artery occlusion, Hypertension, Angioedema, Methamphetamine abuse - Discharge Information Referrals: PCP,None [Primary Care Provider] - Forms: ED Department Discharge Critical Care Note - Critical Care Note Total Time (mins): 220 Comments: Critical care time for multiple comorbidities and conditions these include angioedema, airway monitoring, altered mental status, possible stroke, hemodynamics, agitation. Patient required frequent reexaminations, consults with [facility], general surgery, multiple neurologists including Dr. Alford at [facility], Dr. Garcia at [facility], and Dr. Singh in [facility]. Patient had to wait here in the ER because area was not stable enough for transport and because lack of availability throughout the state [facility] for admissions and transfers and because of weather and inability to fly him out. He was started on a heparin drip at the request of Dr. Singh. He was intubated prior to transport for airway stabilization. Sepsis Event Note (ED) - Focused Exam Vital Signs: Vital Signs Temp Pulse Resp BP BP Pulse Ox 09/27/20 12:20 37.5 C 103 H 155/85 H 93 L 09/27/20 11:36 103 H 183/108 H 89 L 09/27/20 11:06 109 H 187/115 H 92 L 09/27/20 10:43 105 H 198/124 H 88 L 09/27/20 10:13 104 H 197/121 H 88 L 09/27/20 09:43 95 182/105 H 91 L 09/27/20 09:33 111 H 240/136 H 95 09/27/20 09:11 105 H 183/110 H 89 L 09/27/20 08:55 104 H 209/104 H 93 L 09/27/20 08:45 92 196/121 H 92 L 09/27/20 08:16 91 196/122 H 89 L 09/27/20 07:45 92 196/122 H 98 09/27/20 07:44 200/100 H 09/27/20 06:42 36.1 C 89 16 204/111 H 96 - My Orders Last 24 Hours: My Active Orders 09/27/20 07:22 Transfuse Fresh Frozen Plasma [COMM] Stat 09/27/20 07:32 FRESH FROZEN PLASMA [BBK] Stat TYPE AND SCREEN [BBK] Stat 09/27/20 10:45 niCARdipine/Normal Saline [Cardene 40 MG in NS 200 ML] 40 mg in 200 ml IV TITRATE 09/27/20 12:15 Heparin Sod,Pork In 0.45% Nacl [Heparin-1/2Ns 25,000 Units/500] 25,000 unit in 500 ml IV TITRATE 09/27/20 18:30 PTT,PARTIAL THROMBOPLSTIN TIME [COAG] Q6H 09/28/20 00:30 PTT,PARTIAL THROMBOPLSTIN TIME [COAG] Q6H 09/28/20 06:30 PTT,PARTIAL THROMBOPLSTIN TIME [COAG] Q6H 09/28/20 12:30 PTT,PARTIAL THROMBOPLSTIN TIME [COAG] Q6H 09/28/20 18:30 PTT,PARTIAL THROMBOPLSTIN TIME [COAG] Q6H 09/29/20 00:30 PTT,PARTIAL THROMBOPLSTIN TIME [COAG] Q6H - Assessment/Plan Last 24 Hours: My Active Orders 09/27/20 07:22 Transfuse Fresh Frozen Plasma [COMM] Stat 09/27/20 07:32 FRESH FROZEN PLASMA [BBK] Stat TYPE AND SCREEN [BBK] Stat 09/27/20 10:45 niCARdipine/Normal Saline [Cardene 40 MG in NS 200 ML] 40 mg in 200 ml IV TITRATE 09/27/20 12:15 Heparin Sod,Pork In 0.45% Nacl [Heparin-1/2Ns 25,000 Units/500] 25,000 unit in 500 ml IV TITRATE 09/27/20 18:30 PTT,PARTIAL THROMBOPLSTIN TIME [COAG] Q6H 09/28/20 00:30 PTT,PARTIAL THROMBOPLSTIN TIME [COAG] Q6H 09/28/20 06:30 PTT,PARTIAL THROMBOPLSTIN TIME [COAG] Q6H 09/28/20 12:30 PTT,PARTIAL THROMBOPLSTIN TIME [COAG] Q6H 09/28/20 18:30 PTT,PARTIAL THROMBOPLSTIN TIME [COAG] Q6H 09/29/20 00:30 PTT,PARTIAL THROMBOPLSTIN TIME [COAG] Q6H
[2020-09-27 07:51] LABS: BLOOD UREA NITROGEN,BUN 20 mg/dL (7.0-18.0); CARBON DIOXIDE,CO2 27.3 mmol/L (21.0-32.0); CHLORIDE,CL 103 mmol/L (98-107); GLUCOSE RANDOM 213 mg/dL (74-106); POTASSIUM,K 3.9 mmol/L (3.5-5.1); SODIUM,NA 138 mmol/L (136-148)
[2020-09-27] MEDS ORDERED: LORazepam 2 MG/ML SDV IVPUSH ONE ×4 (08:08→09:07)
[2020-09-27] MEDS ORDERED: LORazepam 2 MG/ML SDV ONE (08:12)
--- NOTE | 2020-09-27 08:33 | CT ---
DATE: 09/27/2020. CLINICAL HISTORY: Patient with acute neurological deficit. TECHNIQUE: Standard helical CT image acquisition of the brain following by standard helical CT image acquisition through the head and neck after intravenous contrast bolus enhancement. Multiplanar reconstructed images performed on a separate workstation. COMPARISON: 09/26/2020. FINDINGS: CT HEAD: There is no intracranial hemorrhage. No extra-axial collection, mass effect, or midline shift. No interval change in the hypoattenuation involving the medial right occipital lobe and posteromedial right temporal lobe in keeping with late subacute/chronic infarct. Blanco-white matter differentiation is otherwise maintained. Patchy hypoattenuation within the white matter of both hemispheres likely reflects sequela of chronic small vessel ischemia. Ventricles are normal in size and morphology for patient age. The calvarium is unremarkable. The orbits are unremarkable. Small polyps versus mucous retention cysts within the floors of the maxillary sinuses. The mastoid air cells are unremarkable. The soft tissues are unremarkable. CT ANGIOGRAM HEAD AND NECK: The origins of the great vessels from the aortic arch are patent. 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 The origin of the right vertebral artery is patent. The common carotid arteries are patent. There is no significant stenosis at the origin of the right internal carotid artery. There is no significant stenosis at the origin of the left internal carotid artery. The rest of the cervical segments of the internal carotid arteries are patent up to their intracranial segments noting marked tortuosity of both the left and right cervical segments. The intracranial segments of the internal carotid arteries are patent. The anterior and middle cerebral arteries are patent. The anterior communicating artery is visualized and is within normal limits. The left vertebral artery is dominant and the right vertebral artery markedly hypoplastic. The left vertebral artery, which is occluded at its origin, is reconstituted in its mid cervical segment. The hypoplastic right vertebral artery is patent throughout its course. The intracranial segments of the vertebral arteries are patent, with the right vertebral artery terminating into PICA. Interval development of nonocclusive thrombus within the mid and distal basilar trunk, including the basilar tip, with extension into the origin of the P1 segment of the right posterior cerebral artery. The more distal right posterior cerebral artery as well as the entirety of the left posterior cerebral artery are patent. There is normal opacification of major intracranial venous structures. The visualized lung apices are unremarkable. The thyroid gland is unremarkable. There are degenerative changes in the cervical spine. IMPRESSION: 1. Interval development of nonocclusive thrombus within the mid and distal basilar trunk, including the basilar tip, with extension into the origin of the P1 segment of the right posterior cerebral artery. 2. 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 The right vertebral artery is markedly hypoplastic and terminates into PICA. 3. No evidence of intracranial hemorrhage. 4. No interval change in late subacute/chronic infarct in the right posterior cerebral artery distribution, as above. Dr. Rubio discussed the results of this study with Dr. Patel at 0820 hours on 09/27/2020. Please note that all CT scans at this facility use dose modulation, iterative reconstruction, and/or weight-based dosing when appropriate to reduce radiation dose to as low as reasonably achievable. Dictated by Evelio Michael MD @ Sep 27 2020 8:55AM Signed by Dr. Evelio Michael @ Sep 27 2020 9:19AM
--- NOTE | 2020-09-27 08:47 | PCM.SN.2 ---
- Free Text/Narrative Note: Called to ER for airway evaluation on 89kg male with Angio-edema from lisinopril. Hypertensive crisis was treated with Lisinopril. ? stroke. Currently SaO2 @ ~ 95% on mask. BP currently 196/121. Will continue to monitor and standby.
[2020-09-27] MEDS ORDERED: niCARdipine/Normal Saline 40 MG/200 ML BAG IV SCH (10:45)
[2020-09-27] MEDS ORDERED: Heparin Sod,Pork In 0.45% Nacl 25,000 UNIT/500 ML IV.SOLN IV SCH (12:15)
--- NOTE | 2020-09-27 15:16 | PCM.SN.2 ---
- Free Text/Narrative Note: Called to assisted with intubation. Drugs given. ET/ Patel. BS=BS. Good SaO2's 14:55-15:15.
[2020-09-27] MEDS ORDERED: Acetaminophen 650 MG Supp ONE (15:18)
[2020-09-27] MEDS ORDERED: Acetaminophen 650 MG Supp RECTAL ONE (15:21)
[2020-09-27] MEDS ORDERED: niCARdipine/Normal Saline 20 MG/200 ML BAG ONE (15:23)
--- NOTE | 2020-09-27 16:11 | CR ---
INDICATION: Assess ET tube placement. COMPARISON: Same date at 7 a.m. IMPRESSION: New ET tube roughly 4.5 cm above the ilya. Presumed long enteric tube above this with side-port in the neck. Repositioning or advancement of the NGT recommended. Patchy airspace opacities left upper lobe. Decreased lung volumes from comparison. Dictated by Harmeet Mitchell MD @ Sep 27 2020 4:08PM Signed by Dr. Harmeet Mitchell @ Sep 27 2020 4:10PM
== END 2020-09-27 14:51 ==
LOC: MW.ED 06:41
DX: I65.02 Occlusion and stenosis of left vertebral artery (principal); I10 Essential (primary) hypertension; T78.3XXA Angioneurotic edema, initial encounter; E11.9 Type 2 diabetes mellitus without complications; F15.10 Other stimulant abuse, uncomplicated; Z91.030 Bee allergy status; Z79.82 Long term (current) use of aspirin; Z79.899 Other long term (current) drug therapy; Z86.73 Personal history of transient ischemic attack (TIA), and cerebral infarction without residual deficits; E66.9 Obesity, unspecified
CPT/HCPCS: 31500; 36415; 36430; 43752; 51702; 70450; 70496; 70498; 71045; 80053; 80305; 80307; 81001; 84443; 84484; 85025; 85610; 85730; 86850; 86900; 86901; 87635; 93005; 96365; 96366; 96367; 96375; 96376; 99291; 99292; A9270; J1200; J1644; J2060; J2930; J3490; J7030; P9017; Q9967; U0002